=== PATIENT | male | born 1965 | race Caucasian/White ===

== ENCOUNTER 2017-05-17 17:10 | Emergency (ER) | payer MEDICARE, OTHER ==
[2017-05-17 17:35] VITALS: BMI 29.9
--- NOTE | 2017-05-17 17:36 | PDOC ---
History of Present Illness - History of Present Illness Initial Comments: 05/17/17 18:35 Mr. Sierra is a 51 year old male with a significant past medical history of diabetic neuropathy, chronic back pain, HTN, and kidney stones who presents to the emergency department with complaints of worsening of his neuropathic pain with numbness up his shoulder on the left and throughout his legs. The patient denies chest pain, shortness of breath, headache and dizziness. Denies fever, chills, nausea, vomit, diarrhea and constipation. Denies dysuria, frequency, urgency and hematuria. <Julius Guzmán - Last Filed: 05/17/17 18:55> <Mann Raines - Last Filed: 05/18/17 01:33> - General Chief Complaint: Lightheaded Stated Complaint: DIFFICULTY BREATHING Time Seen by Provider: 05/17/17 17:21 Past History - Psycho/Social/Smoking Cessation Hx Smoking History: Smoker current status UNK <Julius Guzmán - Last Filed: 05/17/17 18:55> <Mann Raines - Last Filed: 05/18/17 01:33> - Past Medical History Allergies/Adverse Reactions: Allergies Allergy/AdvReac Type Severity Reaction Status Date / Time No Known Allergies Allergy Verified 05/17/17 17:19 Home Medications: Ambulatory Orders Glipizide [Glipizide ER] 0 mg PO DAILY 05/17/17 Lovastatin 0 mg PO DAILY 05/17/17 Sitagliptin Phosphate [Januvia] 0 mg PO DAILY 05/17/17 Review of Systems - Review of Systems Comments:: 05/17/17 18:38 GENERAL/CONSTITUTIONAL: No fever or chills. No weakness. HEAD, EYES, EARS, NOSE AND THROAT: No change in vision. No ear pain or discharge. No sore throat. CARDIOVASCULAR: No chest pain or shortness of breath RESPIRATORY: No cough, wheezing, or hemoptysis. GASTROINTESTINAL: No nausea, vomiting, diarrhea or constipation. GENITOURINARY: No dysuria, frequency, or change in urination. MUSCULOSKELETAL: +Chronic back pain throughout lower back. No joint or muscle swelling or pain. SKIN: No rash NEUROLOGIC: +Increase in burning in left arm and both legs. Also reports tingling. No headache, vertigo, loss of consciousness ENDOCRINE: No increased thirst. No abnormal weight change HEMATOLOGIC/LYMPHATIC: No anemia, easy bleeding, or history of blood clots. ALLERGIC/IMMUNOLOGIC: No hives or skin allergy. <Julius Guzmán - Last Filed: 05/17/17 18:55> *Physical Exam - Physical Exam Comments: 05/17/17 18:42 GENERAL: AOx3. In no acute distress. HEAD: No signs of trauma, normocephalic, atraumatic EYES: PERRLA, EOMI ENT: Auricles normal inspection, hearing grossly normal, nares patent, oropharynx clear without exudates. Moist mucosa NECK: Normal ROM, supple, no lymphadenopathy, JVD, or masses LUNGS: +R lung coarse. 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 No distress, speaks full sentences HEART: Regular rate and rhythm, normal S1 and S2, no murmurs, rubs or gallops, peripheral pulses normal and equal bilaterally. ABDOMEN: Soft, nontender, normoactive bowel sounds. No guarding, no rebound. No masses EXTREMITIES: +1 pedal edema. Normal inspection, Normal range of motion. No clubbing or cyanosis. NEUROLOGICAL: +Neuropathic pain described / observed. Does not change with movement. Cranial nerves II through XII grossly intact. Normal speech, no focal sensorimotor deficits SKIN: Warm, Dry, normal turgor, no rashes or lesions noted. 05/17/17 19:16 <Julius Guzmán - Last Filed: 05/17/17 18:55> - Vital Signs Last Vital Signs Temp Pulse Resp BP Pulse Ox 97.8 F 80 20 123/77 99 05/17/17 22:44 05/17/17 22:44 05/17/17 22:44 05/17/17 22:44 05/17/17 22:44 <Mann Raines - Last Filed: 05/18/17 01:33> ED Treatment Course - LABORATORY CBC & Chemistry Diagram: 05/17/17 18:20 05/17/17 18:20 <Julius Guzmán - Last Filed: 05/17/17 18:55> - LABORATORY CBC & Chemistry Diagram: 05/17/17 18:20 05/17/17 18:20 - ADDITIONAL ORDERS Additional order review: Laboratory Results 05/17/17 05/17/17 23:00 18:20 Sodium 136 Potassium 4.3 Chloride 100 Carbon Dioxide 30 Anion Gap 6 L BUN 16 Creatinine 0.7 Creat Clearance w eGFR > 60 Random Glucose 144 H Calcium 8.5 Magnesium 1.9 Total Bilirubin 1.1 H AST 70 H ALT 92 H Alkaline Phosphatase 88 Creatine Kinase 389 H 529 H Creatine Kinase Index 1.6 1.7 CK-MB (CK-2) 6.425 H 9.404 H Troponin I < 0.02 Total Protein 6.9 Albumin 3.5 05/17/17 18:20 RBC 4.09 MCV 100.1 H MCHC 34.4 RDW 14.9 MPV 8.7 Neutrophils % 78.4 Lymphocytes % 12.2 Monocytes % 7.8 Eosinophils % 1.4 Basophils % 0.2 - Medications Given in the ED: ED Medications Discontinued Medications Generic Name Dose Route Start Last Admin Trade Name Freq PRN Reason Stop Dose Admin Sodium Chloride 500 mls @ 500 mls/hr 05/17/17 19:41 05/17/17 19:59 Normal Saline - IV 05/17/17 20:40 500 mls/hr ASDIR STA Administration Sodium Chloride 500 mls @ 500 mls/hr 05/17/17 21:52 05/17/17 22:19 Normal Saline - IV 05/17/17 22:51 500 mls/hr ASDIR STA Administration <Mann Raines - Last Filed: 05/18/17 01:33> Medical Decision Making - Medical Decision Making 05/17/17 18:56 Patient presents for management of many chronic problems, looking to stay in the hospital for a few days as he says he has no where else to go. Counseled by Attending on options on this matter. Serial troponins drawn with basic labs. 05/17/17 19:14 Patient broken down crying while discussing problems and says that he has been feeling very down lately. Adamantly denies SI/HI however. Dr. Raines will follow-up on patient care. <Julius Guzmán - Last Filed: 05/17/17 18:55> *DC/Admit/Observation/Transfer - Attestations Physician Attestion: 05/17/17 19:15 I, Dr. Julius Guzmán, attest that this document has been prepared under my direction and personally reviewed by me in its entirety. I further attest, that it accurately reflects all work, treatment, procedures and medical decision -making performed by me. <Julius Guzmán - Last Filed: 05/17/17 18:55> <Mann Raines - Last Filed: 05/18/17 01:33> Diagnosis at time of Disposition: Neuropathic pain, Pain of left upper extremity, Lightheadedness - Discharge Dispostion Disposition: HOME Condition at time of disposition: Stable - Referrals Referrals: STAFF,NOT ON [Primary Care Provider] - [facility] [Provider Group] - Patient Instructions Printed Discharge Instructions: Neuropathic Pain, DI for Dizziness-Nonvertigo
[2017-05-17 18:25] LABS: BASOPHIL 0.2 % (0-2.0); EOSINOPHIL 1.4 % (0-4.5); MCH 34.4 pg (25.7-33.7); MCHC 34.4 g/dl (32.0-35.9); MEAN CELL VOLUME 100.1 fl (80-96); MEAN PLT VOLUME 8.7 fl (7.5-11.1); NEUTROPHILS 78.4 % (42.8-82.8); PLATELET COUNT 132 K/MM3 (134-434); RDW 14.9 % (11.9-15.9); WHITE BLOOD COUNT 6.9 K/mm3 (4.0-10.0)
[2017-05-17 18:55] LABS: ALBUMIN 3.5 g/dl (3.4-5.0); ALK PHOS 88 U/L (45-117); ANION GAP 6 (8-16); BILIRUBIN,TOTAL 1.1 mg/dL (0.2-1.0); CALCIUM 8.5 mg/dL (8.5-10.1); CO2 30 mmol/L (21-32); CPK 529 IU/L (39-308); CREATININE 0.7 mg/dL (0.7-1.3); GLUCOSE,RANDOM 144 mg/dL (74-106); MAGNESIUM 1.9 mg/dL (1.8-2.4); SGOT/AST 70 U/L (15-37); SGPT/ALT 92 U/L (12-78); TOT PROT 6.9 g/dl (6.4-8.2); TROPONIN I < 0.02 ng/ml (0.00-0.05)
[2017-05-17] MEDS ORDERED: SODIUM CHLORIDE 500 ML IV STA ×2 (19:41→21:52)
--- NOTE | 2017-05-18 01:47 | PDOC ---
Attending Attestation - Resident Resident Name: Julius Guzmán - ED Attending Attestation I have performed the following: I have examined & evaluated the patient, The case was reviewed & discussed with the resident, I agree w/resident's findings & plan, Exceptions are as noted - HPI HPI: 05/18/17 01:37 51-year-old male with diabetes, cervical radiculopathy, hypertension, alcohol abuse, presents to the ER with multiple complains including weakness, dizziness , lightheadedness, left arm paresthesias of increased in severity over the past 6 weeks intermittent syncope and malaise. Patient was seen and evaluated at [facility] for same complaints 24 hours previously. Patient's evaluation included a CT of head which was noted to be normal. Patient reports significant familial stressors over the past several months. Patient denies suicidal/homicidal ideations. Patient reports history of depression. - Physicial Exam PE: 05/18/17 01:39 Patient is awake and alert, resting comfortably. Cranial nerves II through XII are grossly intact. Motor is 5 of 54; there is no pronation drift; gait is stable. Lung evaluation reveals intermittent rhonchi bilaterally; RRR; serial abdominal exams reveal no focal deficits. There is no rash. 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 In the ER, patient is awake and alert, without focal neurological deficits. EKG reveals no evidence of acute ischemia. Chest x-ray reveals no evidence of cardiomegaly/pneumothorax or effusion. CBC is unremarkable. 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 Initial CPK was noted to be elevated. Patient has received IV fluids and repeat CPK was noted to be decreased. I do not suspect rhabdomyolysis at this time. No acute issues are present at this time. Patient will be discharged with medical clinic follow-up as needed for evaluation of chronic complaints.
[2017-05-18 01:49] VITALS: BP 123/74; PULSE 72; TEMP 97
--- NOTE | 2017-05-19 13:44 | EKG ---
Test Reason : Blood Pressure : / mmHG Vent. Rate : 081 BPM Atrial Rate : 081 BPM P-R Int : 130 ms QRS Dur : 106 ms QT Int : 406 ms P-R-T Axes : 032 -61 057 degrees QTc Int : 471 ms NORMAL SINUS RHYTHM INCOMPLETE RIGHT BUNDLE BRANCH BLOCK LEFT ANTERIOR FASCICULAR BLOCK ANTEROLATERAL INFARCT , AGE UNDETERMINED ABNORMAL ECG NO PREVIOUS ECGS AVAILABLE Confirmed by ZAIN NIETO MD ([id number]) on 05/19/2017 1:44:08 PM Referred By: Confirmed By:ZAIN NIETO MD
== END 2017-05-18 01:49 | disposition home or self-care (01) ==
LOC: JER 17:10
PROC: 3E0337Z Introduction of Electrolytic and Water Balance Substance into Peripheral Vein, Percutaneous Approach (ICD-10-PCS; principal; 2017-05-17)
DX: M79.2 Neuralgia and neuritis, unspecified (principal); M79.602 Pain in left arm; R42 Dizziness and giddiness; E11.40 Type 2 diabetes mellitus with diabetic neuropathy, unspecified; M54.5 Low back pain; G89.29 Other chronic pain; I10 Essential (primary) hypertension; Z59.0 Homelessness
CPT/HCPCS: 36415; 71020-TC; 80053; 82553; 83735; 84484; 85025; 93005; 93010; 96360; 96361; 99285-25

== ENCOUNTER 2017-05-18 02:49 | Inpatient (IN) | payer MEDICARE, OTHER ==
--- NOTE | 2017-05-18 03:00 | HP ---
CIWA Score - CIWA Score Nausea/Vomitin Muscle Tremors: 3 Anxiety: 3 Agitation: 2 Paroxysmal Sweats: 2 Orientation: 0-Oriented Tacttile Disturbances: 2-Mild Itch/Numbness/Burn Auditory Disturbances: 2-Mild Harshness/Frighten Visual Disturbances: 2-Mild Sensitivity Headache: 2-Mild CIWA-Ar Total Score: 20 Admission ROS BHS - HPI Chief Complaint: DEPENDENT ON ETOH ONLY THE PT. WAS SENT FROM [facility] ER FOR ADMISSION TO THE DETOX UNIT. Allergies/Adverse Reactions: Allergies Allergy/AdvReac Type Severity Reaction Status Date / Time No Known Allergies Allergy Verified 05/17/17 17:19 History of Present Illness: THE PT. WAS SENT FROM THE ER FOR ADMISSION TO THE DETOX UNIT AND HE CAME FOR H AND PE PLEASE NOTE: HE CLAIMS THAT HE FELL YESTERDAY AND WAS TAKEN TO THE ER AND THE CT SCAN OF THE HEAD WAS NL. Exam Limitations: No Limitations - Ebola screening Have you traveled outside of the country in the last 21 days: No Have you had contact with anyone from an Ebola affected area: No Have you been sick,other than usual withdrawal symptoms: No Do you have a fever: No - Review of Systems Constitutional: See HPI, Malaise, Weakness EENT: reports: See HPI Respiratory: reports: See HPI Cardiac: reports: See HPI GI: reports: See HPI, Nausea, Abdominal cramping : reports: See HPI, Frequency Musculoskeletal: reports: See HPI, Back Pain, Muscle Pain, Muscle Weakness Integumentary: reports: See HPI, Sweating Neuro: reports: See HPI, Headache, Tremors, Weakness Endocrine: reports: See HPI, Increased Thirst, Increased Urine, Unexplained Weight Gain Hematology: reports: See HPI Psychiatric: reports: Judgement Intact, Orientated x3, Anxious, Depressed Patient History - Patient Medical History Hx Hypertension: Yes Hx Hypercholesterolemia: Yes Hx Diabetes: Yes (TYPE II) Hx Human Immunodeficiency Virus (HIV): No Hx Hepatitis C: No Hx Depression: Yes (AND ANXIETY) Other Medical History: CH. LBP - Patient Surgical History Past Surgical History: Yes Hx Genitourinary Surgery: Yes (FOR RENAL STONE IN 2009) - Smoking Cessation Smoking history: Current every day smoker Aproximately how many cigarettes per day: 1 Hx Chewing Tobacco Use: No Initiated information on smoking cessation: Yes 'Breaking Loose' booklet given: 05/18/17 - Substance & Tx. History Hx Alcohol Use: Yes Hx Substance Use: No Substance Use Type: Alcohol Hx Substance Use Treatment: Yes - Substances Abused Alcohol Route: Oral Frequency: Daily Amount used: BEER 1X6 PK/LIQUOR 1/2 P/D Age of first use: 51 Date of Last Use: 05/17/17 Family Disease History - Family Disease History Family Disease History: Diabetes: Father (), Sister Admission Physical Exam [facility] - Physical General Appearance: Yes: No Apparent Distress, Nourished, Appropriately Dressed , Tremorous, Sweating, Anxious HEENTM: Yes: Hearing grossly Normal, Normocephalic, Normal Voice, TARAN, Pharynx Normal Respiratory: Yes: Chest Non-Tender, Lungs Clear, Normal Breath Sounds, No Respiratory Distress, No Accessory Muscle Use Neck: Yes: No masses,lesions,Nodules, Supple, Trachea in good position Breast: Yes: Breast Exam Deferred, Axillae without masses Cardiology: Yes: Regular Rhythm, Regular Rate, S1, S2 Abdominal: Yes: Normal Bowel Sounds, Non Tender, Flat, Soft Back: Yes: Normal Inspection, Decreased Range of Motion Musculoskeletal: Yes: Gait Steady, Back pain, Muscle Pain, Muscle weakness Extremities: Yes: Normal Capillary Refill, Normal Range of Motion, Non-Tender, Tremors, Pedal Edema Neurological: Yes: 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, Fully Oriented, Alert, Motor Strength 5/5, Normal Response, Depressed Affect Integumentary: Yes: Warm, Moist Lymphatic: Yes: Within Normal Limits - Diagnostic (1) EtOH dependence Current Visit: Yes Status: Chronic Qualifiers: Substance use status: uncomplicated Qualified Code(s): F10.20 - Alcohol dependence, uncomplicated (2) Chronic bilateral low back pain Current Visit: Yes Status: Chronic Qualifiers: Sciatica presence: with sciatica Sciatica laterality: sciatica of left side Qualified Code(s): M54.42 - Lumbago with sciatica, left side; G89.29 - Other chronic pain (3) Diabetes 1.5, managed as type 2 Current Visit: Yes Status: Chronic (4) Anxiety and depression Current Visit: Yes Status: Chronic (5) HTN (hypertension) Current Visit: Yes Status: Chronic Qualifiers: Hypertension type: essential hypertension Qualified Code(s): I10 - Essential (primary) hypertension (6) Hypercholesteremia Current Visit: Yes Status: Chronic Cleared for Admission BHS - Detox or Rehab [facility] Level of Care: Medically Managed Detox Regimen/Protocol: Librium BHS Breath Alcohol Content Breath Alcohol Content: 0 Vital Signs - Vital Signs Vital Signs Refused: No Temperature: 98.1 F Temperature Source: Oral Pulse Rate: 79 Respiratory Rate: 16 Blood Pressure: 128/82 BP Location: Left Arm Blood Pressure Position: Sitting - Height Height: 5 ft 9 in - Weight Weight: 200 lb Weight Measurement Method: Estimated by Patient Body Mass Index (BMI): 29.5 Urine Drug Screen - Test Device Lot Number: [id number] Expiration Date: 01/10/19 - Control Is Test Valid: Yes - Results Drug Screen Negative: No Urine Drug Screen Results: OSVALDO-Cocaine
[2017-05-18 03:14] VITALS: BMI 29.5
[2017-05-18] MEDS ORDERED: MAG HYDROX/AL HYDROX/SIMETH 30 ML UNIT-DOSE CUP PO PRN (03:14)
[2017-05-18] MEDS ORDERED: hydrOXYzine PAMOATE 25 MG CAPSULE (FP) PO PRN (03:14)
[2017-05-18] MEDS ORDERED: chlordiazePOXIDE HCL 25 MG CAPSULE PO PRN (03:14)
[2017-05-18] MEDS ORDERED: NICOTINE POLACRILEX 2 MG GUM BC PRN (03:14)
[2017-05-18] MEDS ORDERED: chlordiazePOXIDE HCL 25 MG CAPSULE PO ONE (03:14)
[2017-05-18] MEDS ORDERED: diphenhydrAMINE HCL 50 MG CAPSULE PO PRN (03:14)
[2017-05-18] MEDS ORDERED: ACETAMINOPHEN 325 MG TABLET (FP) PO PRN (03:14)
[2017-05-18] MEDS ORDERED: MENTHOL/PHENOL 1 EACH UD MM PRN (03:14)
[2017-05-18] MEDS ORDERED: LOPERAMIDE HCL 2 MG CAPSULE PO PRN (03:14)
[2017-05-18] MEDS ORDERED: guaiFENesin/D-METHORPHAN HB 10 ML UNIT-DOSE CUPS PO PRN (03:14)
[2017-05-18] MEDS ORDERED: MAGNESIUM CITRATE 300 ML BOTTLE PO PRN (03:14)
[2017-05-18] MEDS ORDERED: MAGNESIUM HYDROX 2400MG/30ML ORAL SUSPENSION 30 ML CUP PO PRN (03:14)
[2017-05-18] MEDS ORDERED: P-EPHED 60MG/TRIPROLIDI 2.5MG TABLET PO PRN (03:14)
[2017-05-18] MEDS: IBUPROFEN 400 MG TABLET (FP) PO PRN (04:35)
[2017-05-18] MEDS: chlordiazePOXIDE HCL 25 MG CAPSULE PO SCH ×4 (05:44→22:11)
[2017-05-18] MEDS: glipiZIDE 5 MG TABLET (FP) PO SCH (08:30)
[2017-05-18] MEDS: sitaGLIPtin PHOSPHATE 50 MG TABLET PO SCH (08:30)
[2017-05-18] MEDS: PRENATAL VITAMINS W/ FOLIC ACID TABLET (FP) PO SCH (10:05)
[2017-05-18 19:26] LABS: URINE APPEARANCE CLEAR; URINE BILIRUBIN NEGATIVE (NEGATIVE); URINE BLOOD NEGATIVE (NEGATIVE); URINE COLOR YELLOW; URINE GLUCOSE (UA) 1+ (NEGATIVE); URINE KETONE NEGATIVE (NEGATIVE); URINE LEUK ESTERASE NEGATIVE (NEGATIVE); URINE NITRITE NEGATIVE (NEGATIVE); URINE PROTEIN NEGATIVE (NEGATIVE); URINE UROBILINOGEN NEGATIVE mg/dL (0.2-1.0)
[2017-05-18] MEDS: THIAMINE HCL 100 MG TABLET (FP) PO SCH (22:11)
[2017-05-19] MEDS: chlordiazePOXIDE HCL 25 MG CAPSULE PO SCH ×4 (05:31→22:35)
[2017-05-19] MEDS: sitaGLIPtin PHOSPHATE 50 MG TABLET PO SCH (07:31)
[2017-05-19] MEDS: glipiZIDE 5 MG TABLET (FP) PO SCH (07:32)
--- NOTE | 2017-05-19 10:11 | PN ---
S CIWA - CIWA Score Nausea/Vomitin-No Nausea/No Vomiting Muscle Tremors: 4-Moderate,w/Arms Extend Anxiety: 3 Agitation: 4-Moderately Restless Paroxysmal Sweats: 3 Orientation: 0-Oriented Tacttile Disturbances: 0-None Auditory Disturbances: 0-None Visual Disturbances: 0-None Headache: 1-Very Mild CIWA-Ar Total Score: 15 BHS Progress Note (SOAP) Subjective: sweats shakes interrupted sleep agitation anxiety Objective: 05/19/17 10:09 Vital Signs Temperature 98.6 F 05/19/17 09:57 Pulse Rate 87 05/19/17 09:57 Respiratory Rate 18 05/19/17 09:57 Blood Pressure 127/62 05/19/17 09:57 O2 Sat by Pulse Oximetry (%) Laboratory Tests 05/18/17 05/18/17 05/19/17 15:00 16:53 07:21 POC Glucometer 148 215 Urine Color Yellow Urine Appearance Clear Urine pH 5.0 Ur Specific [place] 1.025 Urine Protein Negative Urine Glucose (UA) 1+ H Urine Ketones Negative Urine Blood Negative Urine Nitrite Negative Urine Bilirubin Negative Urine Urobilinogen Negative Ur Leukocyte Esterase Negative labs pending awake/alert ambulating no acute distress Assessment: 05/19/17 10:10 withdrawal sx Plan: continue detox increase fluids labs pending
[2017-05-19] MEDS: PRENATAL VITAMINS W/ FOLIC ACID TABLET (FP) PO SCH (10:21)
--- NOTE | 2017-05-19 12:10 | CONSULT ---
[facility] Psychiatric Consult - Data Date of interview: 05/19/17 Admission source: [facility] Identifying data: This is 51 years old male with no psyuchiatric hospitalization history intoxicated with: Alcohol, Cocaine Substance Abuse History: - Smoking Cessation. Smoking history: Current every day smoker. Aproximately how many cigarettes per day: 1. Hx Chewing Tobacco Use: No. Initiated information on smoking cessation: Yes. 'Breaking Loose' booklet given: 05/18/17. - Substance & Tx. History. Hx Alcohol Use: Yes. Hx Substance Use: No. Substance Use Type: Alcohol. Hx Substance Use Treatment: Yes. - Substances Abused. Alcohol. Route: Oral. Frequency: Daily. Amount used: BEER 1X6 PK/LIQUOR 1/2 P/D. Age of first use: 51. Date of Last Use: 05/17/17 Medical History: LBP, DM-2, Hypergholesterolemia, Neuropathy Psychiatric History: Patient reprots hisatory of anxiety and de-pressionl reprots no medications takling prior rhonda admission Physical/Sexual Abuse/Trauma History: Denies Additional Comment: Observation. Detox Unit Care Protocol Mental Status Exam - Mental Status Exam Alert and Oriented to: Person Cognitive Function: Fair Patient Appearance: Unkempt Mood: Sad Affect: Flat Patient Behavior: Sedated Speech Pattern: Slurred Voice Loudness: Mildly Loud Thought Process: Circumstantial Thought Disorder: Being Controlled Hallucinations: Denies Suicidal Ideation: Denies Homicidal Ideation: Denies Sleep: Difficulty falling asleep Appetite: Fair Muscle strength/Tone: Mild Hypotonicity Gait/Station: Shuffling Additional Comments: Observation. Detox Unit Care Protocol Psychiatric Findings - Problem List ([place] 1, 2,3) (1) Anxiety and depression Current Visit: Yes Status: Chronic (2) Chronic bilateral low back pain Current Visit: Yes Status: Chronic Qualifiers: Sciatica presence: with sciatica Sciatica laterality: sciatica of left side Qualified Code(s): M54.42 - Lumbago with sciatica, left side; G89.29 - Other chronic pain (3) EtOH dependence Current Visit: Yes Status: Chronic Qualifiers: Substance use status: uncomplicated Qualified Code(s): F10.20 - Alcohol dependence, uncomplicated (4) Cocaine dependence Current Visit: Yes Status: Acute (5) Drug-induced mood disorder Current Visit: Yes Status: Acute - Initial Treatment Plan Initial Treatment Plan: Observation. Detox Unit Care Protocol
[2017-05-19] MEDS: THIAMINE HCL 100 MG TABLET (FP) PO SCH (22:35)
[2017-05-20] MEDS: glipiZIDE 5 MG TABLET (FP) PO SCH (06:10)
[2017-05-20] MEDS: sitaGLIPtin PHOSPHATE 50 MG TABLET PO SCH (06:10)
[2017-05-20] MEDS: chlordiazePOXIDE 5 MG CAPSULE PO SCH ×4 (06:10→22:02)
--- NOTE | 2017-05-20 09:52 | PN ---
S CIWA - CIWA Score Nausea/Vomitin-No Nausea/No Vomiting Muscle Tremors: 3 Anxiety: 4-Mod. Anxious/Guarded Agitation: 3 Paroxysmal Sweats: 3 Orientation: 0-Oriented Tacttile Disturbances: 0-None Auditory Disturbances: 0-None Visual Disturbances: 0-None Headache: 0-None Present CIWA-Ar Total Score: 13 BHS Progress Note (SOAP) Subjective: feeling better little sweats anxious Objective: 05/20/17 09:51 Vital Signs Temperature 97.9 F 05/20/17 06:00 Pulse Rate 76 05/20/17 06:00 Respiratory Rate 18 05/20/17 06:00 Blood Pressure 122/72 05/20/17 06:00 O2 Sat by Pulse Oximetry (%) Laboratory Tests 05/18/17 05/18/17 05/18/17 06:39 15:00 16:53 POC Glucometer 184 148 Urine Color Yellow Urine Appearance Clear Urine pH 5.0 Ur Specific [place] 1.025 Urine Protein Negative Urine Glucose (UA) 1+ H Urine Ketones Negative Urine Blood Negative Urine Nitrite Negative Urine Bilirubin Negative Urine Urobilinogen Negative Ur Leukocyte Esterase Negative RPR Titer 05/19/17 05/19/17 05/19/17 07:00 07:21 16:31 POC Glucometer 215 256 Urine Color Urine Appearance Urine pH Ur Specific [place] Urine Protein Urine Glucose (UA) Urine Ketones Urine Blood Urine Nitrite Urine Bilirubin Urine Urobilinogen Ur Leukocyte Esterase RPR Titer Nonreactive 05/20/17 06:09 POC Glucometer 202 Urine Color Urine Appearance Urine pH Ur Specific [place] Urine Protein Urine Glucose (UA) Urine Ketones Urine Blood Urine Nitrite Urine Bilirubin Urine Urobilinogen Ur Leukocyte Esterase RPR Titer all labs done at [facility] ED labs reviewed elevated AST/ALT; tylenol d/c awake/alert ambulating no acute distress Assessment: 05/20/17 10:10 withdrawal sx Plan: continue detox increase fluids
[2017-05-20] MEDS: PRENATAL VITAMINS W/ FOLIC ACID TABLET (FP) PO SCH (10:06)
[2017-05-20] MEDS ORDERED: PNEUMOC 13-VAL CONJ-DIP CRM/PF 0.5 ML DISP.SYRIN IM ONE (12:00)
[2017-05-20] MEDS ORDERED: PNEUMOCOCCAL 23 VACCINE 0.5 ML VIAL IM ONE (12:00)
[2017-05-20] MEDS: THIAMINE HCL 100 MG TABLET (FP) PO SCH (22:02)
[2017-05-21] MEDS ORDERED: chlordiazePOXIDE HCL 10 MG CAPSULE PO SCH (05:00)
[2017-05-21] MEDS: IBUPROFEN 400 MG TABLET (FP) PO PRN (05:40)
[2017-05-21] MEDS: sitaGLIPtin PHOSPHATE 50 MG TABLET PO SCH (06:34)
[2017-05-21] MEDS: glipiZIDE 5 MG TABLET (FP) PO SCH (06:34)
--- NOTE | 2017-05-21 09:14 | PN ---
BHS Progress Note (SOAP) Subjective: feeling great I am ready to go home Objective: 05/21/17 09:13 Vital Signs Temperature 97.9 F 05/21/17 06:25 Pulse Rate 75 05/21/17 06:25 Respiratory Rate 18 05/21/17 06:25 Blood Pressure 133/83 05/21/17 06:25 O2 Sat by Pulse Oximetry (%) [id number] ambulating no acute distress Assessment: 05/21/17 09:13 no withdrawal noted Plan: d/c home and follow up with aftercare plan
--- NOTE | 2017-05-21 09:16 | DS ---
[facility] Detox Discharge Summary Admission Date: 05/18/17 Discharge Date: 05/21/17 - History Present History: Alcohol Dependence, Cocaine Dependence - Physical Exam Results Vital Signs: Vital Signs Temperature 97.9 F 05/21/17 06:25 Pulse Rate 75 05/21/17 06:25 Respiratory Rate 18 05/21/17 06:25 Blood Pressure 133/83 05/21/17 06:25 O2 Sat by Pulse Oximetry (%) - Treatment Hospital Course: Detox Protocol Followed, Detoxed Safely, Responded well, Discharged Condition Good, Rehab Referral Accepted - Medication Discharge Medications: Ambulatory Orders Glipizide [Glipizide ER] 5 mg PO DAILY 05/17/17 Lovastatin 0 mg PO DAILY 05/17/17 Sitagliptin Phosphate [Januvia] 50 mg PO DAILY 05/17/17 - Diagnosis (1) Cocaine dependence Current Visit: Yes Status: Chronic Qualifiers: Substance use status: uncomplicated Qualified Code(s): F14.20 - Cocaine dependence, uncomplicated (2) Drug-induced mood disorder Current Visit: Yes Status: Acute (3) Anxiety and depression Current Visit: Yes Status: Chronic (4) Chronic bilateral low back pain Current Visit: Yes Status: Chronic Qualifiers: Sciatica presence: with sciatica Sciatica laterality: sciatica of left side Qualified Code(s): M54.42 - Lumbago with sciatica, left side; G89.29 - Other chronic pain (5) Diabetes 1.5, managed as type 2 Current Visit: Yes Status: Chronic (6) EtOH dependence Current Visit: Yes Status: Chronic Qualifiers: Substance use status: uncomplicated Qualified Code(s): F10.20 - Alcohol dependence, uncomplicated (7) HTN (hypertension) Current Visit: Yes Status: Chronic Qualifiers: Hypertension type: essential hypertension Qualified Code(s): I10 - Essential (primary) hypertension (8) Hypercholesteremia Current Visit: Yes Status: Chronic (9) Arm pain, left Current Visit: No Status: Resolved (10) Lightheaded Current Visit: No Status: Acute (11) Neuropathic pain Current Visit: No Status: Acute - AMA Did Patient Leave Against Medical Advice: No (outpatient (positive direction))
[2017-05-21 10:00] VITALS: BP 116/69; PULSE 88; TEMP 98.1
--- NOTE | 2017-05-21 14:53 | EKG ---
Test Reason : Blood Pressure : / mmHG Vent. Rate : 076 BPM Atrial Rate : 076 BPM P-R Int : 160 ms QRS Dur : 112 ms QT Int : 388 ms P-R-T Axes : 065 -50 137 degrees QTc Int : 436 ms NORMAL SINUS RHYTHM INCOMPLETE RIGHT BUNDLE BRANCH BLOCK LEFT ANTERIOR FASCICULAR BLOCK ANTEROSEPTAL INFARCT (CITED ON OR BEFORE 17-MAY-2017) ABNORMAL ECG WHEN COMPARED WITH ECG OF 18-MAY-2017 03:00, NO SIGNIFICANT CHANGE WAS FOUND Confirmed by EDY DUNN MD ([id number]) on 05/21/2017 2:52:45 PM Referred By: Confirmed By:EDY DUNN MD
== END 2017-05-21 09:54 | disposition home or self-care (01) | DRG 897 ==
LOC: ASASADMIT 02:49 → Y6N 03:04
PROVIDERS: ADMIT Internal Medicine; ATTEND Internal Medicine
PROC: HZ2ZZZZ Detoxification Services for Substance Abuse Treatment (ICD-10-PCS; principal; 2017-05-18)
DX: F10.230 Alcohol dependence with withdrawal, uncomplicated (principal); F14.20 Cocaine dependence, uncomplicated; F19.24 Other psychoactive substance dependence with psychoactive substance-induced mood disorder; F41.8 Other specified anxiety disorders; M54.42 Lumbago with sciatica, left side; G89.29 Other chronic pain; E11.9 Type 2 diabetes mellitus without complications; I10 Essential (primary) hypertension; E78.00 Pure hypercholesterolemia, unspecified; G62.9 Polyneuropathy, unspecified; R42 Dizziness and giddiness; M79.602 Pain in left arm; R74.0 Nonspecific elevation of levels of transaminase and lactic acid dehydrogenase [LDH]; Z87.442 Personal history of urinary calculi; Z59.0 Homelessness
CPT/HCPCS: 36415; 81003; 86593; 90732; 93005; 93010; G0009

== ENCOUNTER 2019-03-25 16:37 | Inpatient (IN) | payer MEDICARE, OTHER ==
--- NOTE | 2019-03-25 16:51 | PDOC ---
Rapid Medical Evaluation Time Seen by Provider: 03/25/19 16:47 Medical Evaluation: Allergies Allergy/AdvReac Type Severity Reaction Status Date / Time No Known Allergies Allergy Verified 05/17/17 17:19 03/25/19 16:47 I have performed a brief in-person evaluation of this patient. The patient presents with a chief complaint of: sudden onset of intermittent midsternal Chest pain today, does not radiate anywhere. (+)stent. No SOB. Pertinent physical exam findings: Pt in NAD I have ordered the following: EKG, CXR, CBC, CMP, cardiac enzymes, mag, phos The patient will proceed to the ED for further evaluation. 03/25/19 16:49 Discharge Disposition - Diagnosis Chest pain Qualifiers: Chest pain type: other chest pain Qualified Code(s): R07.89 - Other chest pain ; R07.8 - Other chest pain - Referrals - Patient Instructions - Post Discharge Activity
--- NOTE | 2019-03-25 17:48 | PDOC ---
History of Present Illness - General Chief Complaint: Chest Pain Stated Complaint: CHEST PAIN Time Seen by Provider: 03/25/19 16:47 - History of Present Illness Initial Comments: Rafita Sierra is a 53yo man with a PMH of CAD s/p NC s/p pRCA stent, HTN, HLD who presents with an unusual sensation in his left chest today. He is unable to describe the sensation exactly; he says it's possible that it feels like palpitations, but he is not sure as he has never experienced it before. He says it feels like someone tapping their fingers on his chest, but the sensation is deep inside his chest. The feeling first occurred when he went for a walk this morning. He did not have any associated SOB, pain, lightheadedness, diaphoresis , or nausea. He decided to go back home and lay down. He took a short nap, and the pain had resolved when he woke. He believes the pain lasted about 30-60 minutes. This afternoon, he had something to eat around 4:30 and the odd sensation started up again. Because of his heart history, he felt that he should be evaluated. Past History - Past Medical History Allergies/Adverse Reactions: Allergies Allergy/AdvReac Type Severity Reaction Status Date / Time No Known Allergies Allergy Verified 03/25/19 16:47 Home Medications: Ambulatory Orders Sitagliptin Phosphate [Januvia] 25 mg PO BID #60 tab 05/21/17 Aspirin [ASA -] 1 tab PO DAILY 08/27/18 Clopidogrel Bisulfate [Plavix] 75 mg PO DAILY 08/27/18 Atorvastatin Ca [Lipitor] 20 mg PO HS 03/25/19 Lisinopril [Zestril] 25 mg PO DAILY 03/25/19 Asthma: No Cardiac Disorders: No (cardiac stent placed) COPD: No Diabetes: Yes GI Disorders: No Disorders: Yes (kidney stones lithotripsy) HTN: Yes Hypercholesterolemia: Yes Kidney Stones: Yes Seizures: No - Surgical History Abdominal Surgery: No Appendectomy: No Cardiac Surgery: Yes (stent taped) Cholecystectomy: No Lung Surgery: No Neurologic Surgery: No Orthopedic Surgery: No - Reproductive History Testicular Surgery: No - Immunization History Immunization Up to Date: Yes - Suicide/Smoking/Psychosocial Hx Smoking History: Never smoked Have you smoked in the past 12 months: No Number of Cigarettes Smoked Daily: 1 If you are a former smoker, when did you quit?: quit years ago Information on smoking cessation initiated: No 'Breaking Loose' booklet given: 05/18/17 Hx Alcohol Use: No Drug/Substance Use Hx: No Substance Use Type: None Hx Substance Use Treatment: No Review of Systems - Review of Systems Comments:: General: No fevers, no chills, no weight or appetite change, no malaise HEENT: No changes in vision, no changes in hearing, no congestion, no sore throat CV: No chest pain, + possible palpitations, no LE edema Pulm: No SOB, no cough, no wheezing GI: No nausea or vomiting, no change in bowel habits, no melena : No frequency, no urgency, no dysuria Musc: No back pain, no joint swelling, no recent injury Skin: No rash, no lesions, no erythema Endo: No excessive thirst, no heat/cold intolerance Heme: No unusual bruising or bleeding, no swollen glands Neuro: No syncope, no numbness/tingling, no focal weakness Vasc: No claudication Psych: No recent change in mood, no SI or HI *Physical Exam - Vital Signs Last Vital Signs Temp Pulse Resp BP Pulse Ox 98.2 F 91 H 17 155/92 96 03/25/19 16:47 03/25/19 16:47 03/25/19 16:47 03/25/19 16:47 03/25/19 16:47 - Physical Exam Comments: General: Comfortable, no acute distress HEENT: Atraumatic, PERRL, EOMI, MMM, voice normal, normal neck ROM Cards: RRR, no murmur appreciated, no chest wall tenderness Pulm: Comfortable on room air, clear to auscultation bilaterally Abd: Soft, nontender, nondistended Ext: Atraumatic. No LE edema. ROM intact Vasc: Extremities WWP Skin: Normal color, no rashes or lesions Neuro: A&Ox3, CN grossly intact, normal speech, motor/sensory grossly intact and symmetric Psych: Mood appropriate to situation ED Treatment Course - LABORATORY CBC & Chemistry Diagram: 03/25/19 17:35 03/25/19 17:35 Medical Decision Making - Medical Decision Making 03/25/19 17:42 Rafita Sierra is a 53yo man with a PMH of CAD s/p NC s/p pRCA stent, HTN, HLD who presents with an unusual sensation in his left chest today that feels like fingers tapping on his chest. He experienced the sensation twice, and he denies any associated symptoms including SOB, pain, - Low suspicion for ACS, could be intermittent arrhythmia. No symptoms suggesting infection - Cardiac workup sent in RME - CXR completed; no focal pathology - EKG completed in triage; needs to be located 03/25/19 18:23 - EKG reviewed. HR 91, regular, normal intervals, left axis, incomplete RBBB, L anterior fascicular block - Ordering ASA for possible ACS, especially as he had an atypical presentation during his prior NC - reports that he "fell out" but no chest pain or other symptoms. 03/25/19 18:50 - Labs completed. Notable for elevated glucose in the 200's. Trop 0.03. Otherwise unremarkable - Updated Mr Sierra. Advised obs admission for repeat EKG and trop overnight. He agrees with this plan - Sees Dr Quinones as an outpatient. Consult placed - Microblog sent for obs admission 03/25/19 19:05 - Signed out to Dr Daniel for the remainder of ED care - Spoke to Dr Cuevas. Will evaluate for admission. Discussed with Dr Beverly. Rissa Gold PGY1 *DC/Admit/Observation/Transfer Diagnosis at time of Disposition: Chest pain Qualifiers: Chest pain type: other chest pain Qualified Code(s): R07.89 - Other chest pain - Discharge Dispostion Decision to Admit order: Yes - Referrals Referrals: ON STAFF,NOT [Primary Care Provider] - - Patient Instructions - Post Discharge Activity
[2019-03-25 18:13] LABS: BASO % 0.5 % (0-2.0); EOS % 3.1 % (0-4.5); HEMATOCRIT 42.7 % (35.4-49); HEMOGLOBIN 14.3 GM/dL (11.7-16.9); LYMPH % 25.5 % (8-40); MCH 33.3 pg (25.7-33.7); MCHC 33.6 g/dl (32.0-35.9); MEAN CELL VOLUME 99.2 fl (80-96); MEAN PLT VOLUME 9.4 fl (7.5-11.1); MONO % 10.5 % (3.8-10.2); NEUT % 60.4 % (42.8-82.8); PLATELET COUNT 110 K/MM3 (134-434); RDW 16.9 % (11.9-15.9); WHITE BLOOD COUNT 4.9 K/mm3 (4.0-10.0)
[2019-03-25] MEDS ORDERED: ASPIRIN 81 MG CHEWABLE TABLETS PO ONE (18:26)
[2019-03-25] MEDS ORDERED: ASPIRIN 81 MG CHEWABLE TABLETS ONE (18:33)
[2019-03-25 18:39] LABS: INR 1.03 (0.83-1.09); PROTHROMBIN TIME (PATIENT) 12.1 SEC (9.7-13.0)
[2019-03-25 18:41] LABS: ALBUMIN 3.4 g/dl (3.4-5.0); BILIRUBIN,TOTAL 0.8 mg/dL (0.2-1); BLOOD UREA NITROGEN 17.8 mg/dL (7-18); CALCIUM 8.6 mg/dL (8.5-10.1); CREATININE 0.9 mg/dL (0.55-1.3); PHOSPHOROUS 3.7 mg/dL (2.5-4.9); POTASSIUM 4.1 mmol/L (3.5-5.1); TOT PROT 7.3 g/dl (6.4-8.2)
--- NOTE | 2019-03-25 19:31 | HP ---
<Kevin Cuevas - Last Filed: 03/26/19 19:33> CHIEF COMPLAINT: chest discomfort HISTORY OF PRESENT ILLNESS: Patient is a 53 yo M with a PMHx of SC, 1 drug eluding stent (06/30), HTN, HLD, DM, presented to the ED with intermittent, sub-sternal, non-radiating, chest discomfort that started at 7am when he woke up from bed. Patient denies chest pain and describes this discomfort as an "unusual,weird sensation". He says he never experienced this type of feeling before. 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 He says he had a recent echo this past year. He denies palpitations , dizziness, chest pain, nausea, vomiting, sob, edema, diaphoresis, lightheadedness, urinary changes. ER course was notable for: (1) ASA 324 (2) EKG: no acute changes- NSR, L Ant Fascicular block, L axis Recent Travel: denies PAST MEDICAL HISTORY: per HPI PAST SURGICAL HISTORY: kidney stone removal Social History: Smoking: denies Alcohol: denies Drugs: denies Family History: Allergies No Known Allergies Allergy (Verified 03/25/19 16:47) HOME MEDICATIONS: Home Medications Medication Instructions Recorded Sitagliptin Phosphate [Januvia] 25 mg PO BID #60 tab 05/21/17 Aspirin [ASA -] 1 tab PO DAILY 08/27/18 Clopidogrel Bisulfate [Plavix] 75 mg PO DAILY 08/27/18 Atorvastatin Ca [Lipitor] 20 mg PO HS 03/25/19 Lisinopril [Zestril] 25 mg PO DAILY 03/25/19 REVIEW OF SYSTEMS CONSTITUTIONAL: Absent: fever, chills, diaphoresis, generalized weakness, malaise, loss of appetite, weight change HEENT: Absent: rhinorrhea, nasal congestion, throat pain, throat swelling, difficulty swallowing, mouth swelling, ear pain, eye pain, visual changes CARDIOVASCULAR: Absent: chest pain, syncope, palpitations, irregular heart rate, lightheadedness , peripheral edema RESPIRATORY: Absent: cough, shortness of breath, dyspnea with exertion, orthopnea, wheezing, stridor, hemoptysis GASTROINTESTINAL: Absent: abdominal pain, abdominal distension, nausea, vomiting, diarrhea, constipation, melena, hematochezia GENITOURINARY: Absent: dysuria, frequency, urgency, hesitancy, hematuria, flank pain, genital pain MUSCULOSKELETAL: Absent: myalgia, arthralgia, joint swelling, back pain, neck pain NEUROLOGIC: Absent: headache, focal weakness or paresthesias, dizziness, unsteady gait, seizure, mental status changes, bladder or bowel incontinence PHYSICAL EXAMINATION Vital Signs - 24 hr 03/25/19 16:47 Temperature 98.2 F Pulse Rate 91 H Respiratory 17 Rate Blood Pressure 155/92 O2 Sat by Pulse 96 Oximetry (%) GENERAL: Awake, alert, and fully oriented, in no acute distress. HEAD: Normal with no signs of trauma. EYES: Pupils equal, round and reactive to light, extraocular movements intact, sclera anicteric, conjunctiva clear. = EARS, NOSE, THROAT: = oropharynx clear without exudates. Moist mucous membranes. NECK:supple without lymphadenopathy, JVD, or masses. LUNGS: Breath sounds equal, clear to auscultation bilaterally. No wheezes, and no crackles. HEART: Regular rate and rhythm, normal S1 and S2 without murmur, rub or gallop. ABDOMEN: Soft, nontender, not distended, normoactive bowel sounds, no guarding, no rebound, no masses. MUSCULOSKELETAL: Normal range of motion at all joints. LOWER EXTREMITIES: 2+ pulses, warm, well-perfused. No calf tenderness. No peripheral edema. NEUROLOGICAL: Cranial nerves II-XII intact. Normal speech. Laboratory Results - last 24 hr 03/25/19 03/25/19 03/25/19 17:35 17:35 17:35 WBC 4.9 RBC 4.30 Hgb 14.3 Hct 42.7 MCV 99.2 H MCH 33.3 MCHC 33.6 RDW 16.9 H Plt Count 110 L MPV 9.4 Absolute Neuts (auto) 3.0 Neutrophils % 60.4 D Lymphocytes % 25.5 D Monocytes % 10.5 H Eosinophils % 3.1 D Basophils % 0.5 Nucleated RBC % 0 PT with INR 12.10 INR 1.03 Sodium Potassium Chloride Carbon Dioxide Anion Gap BUN Creatinine Est GFR (CKD-EPI)AfAm Est GFR (CKD-EPI)NonAf Random Glucose Calcium Phosphorus Magnesium Total Bilirubin AST ALT Alkaline Phosphatase Creatine Kinase Creatine Kinase Index CK-MB (CK-2) Troponin I Total Protein Albumin Lipase Blood Type Cancelled Antibody Screen Cancelled 03/25/19 17:35 WBC RBC Hgb Hct MCV MCH MCHC RDW Plt Count MPV Absolute Neuts (auto) Neutrophils % Lymphocytes % Monocytes % Eosinophils % Basophils % Nucleated RBC % PT with INR INR Sodium 139 Potassium 4.1 Chloride 103 Carbon Dioxide 28 Anion Gap 8 BUN 17.8 Creatinine 0.9 Est GFR (CKD-EPI)AfAm 111.05 Est GFR (CKD-EPI)NonAf 95.81 Random Glucose 232 H Calcium 8.6 Phosphorus 3.7 Magnesium 2.0 Total Bilirubin 0.8 AST 33 ALT 35 Alkaline Phosphatase 115 Creatine Kinase 216 Creatine Kinase Index 1.4 CK-MB (CK-2) 3.2 Troponin I 0.03 Total Protein 7.3 Albumin 3.4 Lipase 117 Blood Type Antibody Screen ASSESSMENT/PLAN: 53 yo M with a PMHx of SC, 1 drug eluding stent (06/30), HTN, HLD, DM, presented to the ED with intermittent, sub-sternal, non-radiating, chest discomfort #Chest discomfort/Atypical Chest Pain -r/o ACS -tele monitoring -1st trop 0.03, FU repeat -ASA 324 given in ED -Give nitro SL -lipid panel -obtain echo from steam train driver -cardiology consulted by ED: Dr. Quinones -FU TSH #HTN -cont Lisinopril 25mg #HLD -cont. Atoravastatin 20mg -FU lipid panel #DM -hyperglycemic in ED, says he drank diet pepsi -hold Januvia -BGM -SSI -Hgb A1c #FEN -no iv fluids -monitor -diabetic diet #Dvt ppx -hep sq dispo: tele-obs Visit type - Emergency Visit Emergency Visit: Yes ED Registration Date: 03/25/19 Care time: The patient presented to the Emergency Department on the above date and was hospitalized for further evaluation of their emergent condition. - New Patient This patient is new to me today: Yes Date on this admission: 03/26/19 - Critical Care Critical Care patient: No <Emeterio Fregoso - Last Filed: 03/29/19 23:42> Seen and examined; agree with above except as supplemented by myself in my own documentation. Present for and verified all beltran parts of history of physical exam and independently reviewed all labs, test results, etc. Seen and examined; agree with above except as supplemented by myself in my own documentation. Present for and verified all beltran parts of history of physical exam and independently reviewed all labs, test results, etc.
--- NOTE | 2019-03-25 19:45 | PN ---
Teaching Attending Note Name of Resident: Kevin Cuevas ATTENDING PHYSICIAN STATEMENT I saw and evaluated the patient. I reviewed the resident's note and discussed the case with the resident. I agree with the resident's findings and plan as documented. SUBJECTIVE: Intermittent substernal nonradiating chest discomfort since 7AM. No current chest pain. "weird sensation." Recent echo with his CV Dr. Quinones. We do not have a cath report from his last encounter. [place] last year s/p 1 ANNEMARIE 06/2018 HTN HLD DM In the ER he was given ASA and medicine was called for admission 10 sys ROS done and negative aside from HPI PMH, PSH, FH, SH reviewed Home Medications Medication Instructions Recorded Sitagliptin Phosphate [Januvia] 25 mg PO BID #60 tab 05/21/17 Aspirin [ASA -] 1 tab PO DAILY 08/27/18 Clopidogrel Bisulfate [Plavix] 75 mg PO DAILY 08/27/18 Atorvastatin Ca [Lipitor] 20 mg PO HS 03/25/19 Lisinopril [Zestril] 25 mg PO DAILY 03/25/19 OBJECTIVE: VS, labs, imaging reviewed NAD, AAO, resting comfortably in bed NC AT EOMI PERRLA RRR s1/2 no mgr Lungs CTAB, w/ sym exp NT ND +BS CN2-12 wnl, no fnd Normal mood, appropriate affect EKG reviewed; L-AF block, q-waves, similar to prior study CXR reviewed Prior EKGs reviewed ASSESSMENT AND PLAN: Patient presents with chest pain; had recent stenting last year 1) Atypical CP in adult, r/o ACS -Given risk factors, etc. will be potentially benefitting from stres test. Need to d/w CV and review old cath, etc. -Check troponin, monitor tele, repeat EKG _Appreciate expert consult 2) HTN -Contineu home meds 3) HLD -Continue home statin 4) DM -Continue home insulin
[2019-03-25] MEDS ORDERED: NITROGLYCERIN SUBLINGUAL 1/150 0.4 MG TAB SL ONE (19:54)
--- NOTE | 2019-03-25 20:42 | PDOC ---
Documentation entered by Partha Cotto SCRIBE, acting as scribe for Constance Beverly MD. Constance Beverly MD: This documentation has been prepared by the Yadiel majano Daniel, SCRIBE, under my direction and personally reviewed by me in its entirety. I confirm that the documentation accurately reflects all work, treatment, procedures, and medical decision making performed by me. Attending Attestation - Resident Resident Name: AllaRissa - ED Attending Attestation I have performed the following: I have examined & evaluated the patient, The case was reviewed & discussed with the resident, I agree w/resident's findings & plan, Exceptions are as noted - HPI HPI: 03/25/19 18:16 The patient is a 53 year old male with a past medical history of CAD, [place] s/p stent in RCA, HTN, insulin dependent diabetes, and HLD here today for evaluation of "weird" chest sensation. The patient reports that his chest sensation started at 11:30 AM while he was walking. He states it feels like a non radiating tingling in his L chest a/w some sharp tapping in the same area. He notes that it lasted for about an hour and resolved by itself. He states that it came back around 4:30 PM when he was eating. Patient describes his chest sensation as tapping fingers inside of his chest. At the time of my evaluation, the sensation has returned. He denies hx similar sxs. Denies tobacco or drug use. Denies associated diaphoresis, SOB, headache, focal weakness/numbness, dizziness, N/V, abd pain, or LE edema. Denies fever, chills. Denies recent travel or immobility. Denies calf pain. Take baby asa and plavix daily. Allergies: NKA - Physicial Exam PE: 03/25/19 18:54 GENERAL: Awake, alert, and fully oriented, in no acute distress EYES: PERRLA, EOMI, sclera anicteric, conjunctiva clear ENT: Oropharynx clear without exudates. Moist mucosa NECK: Normal ROM, supple, no lymphadenopathy, JVD, or masses LUNGS: Breath sounds equal, clear to auscultation bilaterally. No wheezes, and no crackles HEART: Regular rate and rhythm, normal S1 and S2, no murmurs, rubs or gallops ABDOMEN: Soft, nontender, normoactive bowel sounds. No guarding, no rebound. No masses EXTREMITIES: Normal range of motion, no edema. No cords, erythema, or tenderness NEUROLOGICAL: Normal speech, cranial nerves intact, equal strength and sensation b/l SKIN: Warm, Dry, normal turgor, no rashes or lesions noted. - Medical Decision Making 03/25/19 18:56 53yo M hx MMP including CAD s/p stent presents to the ED with abnormal sensation in the L side of his chest. Vitals wnl Exam wnl EKG unchanged HS 4 Labs including initial trop neg Given history of CAD, plan for tele obs admission for [facility] Hospitalist has been paged for admission. Heart Score/ECG Review - History History: Slightly suspicious - Electrocardiogram EKG: Non specific repolarization disturbance - Age Age: 45-65 - Risk Factors Based on the list above the patient has:: >/=3 risk factors or Hx atherosclerotic disease - Troponin Troponin: </= normal limit - Score Heart Score - Total: 4 #1 03/25/19 18:57 EKG read and interpreted by me: NSR, rate 91, L axis deviation. No PURVI or TWI.
[2019-03-25] MEDS ORDERED: ATORVASTATIN CA 20 MG TABLET (FP) PO SCH (22:00)
[2019-03-25] MEDS: INSULIN SLIDING SCALE (NOVOLOG) 1 VIAL SQ SCH (22:42)
[2019-03-25 23:26] VITALS: BMI 29.7
[2019-03-26] MEDS: INSULIN SLIDING SCALE (NOVOLOG) 1 VIAL SQ SCH ×3 (06:30→22:10)
[2019-03-26] MEDS: HEPARIN NA (PORCINE) 5,000 UNITS/ML 1ML VIAL SQ SCH ×3 (06:35→22:08)
[2019-03-26 07:02] LABS: BASO % 0.5 % (0-2.0); EOS % 4.7 % (0-4.5); HEMATOCRIT 41.2 % (35.4-49); HEMOGLOBIN 14.1 GM/dL (11.7-16.9); LYMPH % 30.9 % (8-40); MCH 33.7 pg (25.7-33.7); MCHC 34.3 g/dl (32.0-35.9); MEAN CELL VOLUME 98.4 fl (80-96); MEAN PLT VOLUME 9.3 fl (7.5-11.1); MONO % 9.7 % (3.8-10.2); NEUT % 54.2 % (42.8-82.8); PLATELET COUNT 97 K/MM3 (134-434); RBC 4.19 M/mm3 (4.00-5.60); RDW 16.9 % (11.9-15.9); WHITE BLOOD COUNT 4.5 K/mm3 (4.0-10.0)
[2019-03-26 07:32] LABS: ALBUMIN 3.2 g/dl (3.4-5.0); BILIRUBIN,TOTAL 1.4 mg/dL (0.2-1); BLOOD UREA NITROGEN 19.6 mg/dL (7-18); CREATININE 0.7 mg/dL (0.55-1.3); PHOSPHOROUS 3.4 mg/dL (2.5-4.9); POTASSIUM 3.9 mmol/L (3.5-5.1); TOT PROT 6.8 g/dl (6.4-8.2)
[2019-03-26 07:36] LABS: CHOLESTEROL 166 mg/dL (50-200); HDL CHOLESTEROL 61 mg/dL (40-60); TRIGLYCERIDES 85 mg/dL (0-150)
--- NOTE | 2019-03-26 08:57 | CON.CARD ---
Consult Consult Specialty:: cardiology Reason for Consultation:: chest pain - History of Present Illness Chief Complaint: Pt still c/o chest tingling, though much milder than yesterday. History of Present Illness: Mr. Sierra is a 53 year old male with a past medical history of CAD, [place] s/p stent in RCA 06/2018, HTN, insulin dependent diabetes, and HLD, here today for evaluation of "weird" chest sensation. The patient reports that his chest sensation started at 11:30 AM while he was walking. He states it feels like a non radiating tingling in his L chest a/w some sharp tapping in the same area. He notes that it lasted for about an hour and resolved by itself. He states that it came back around 4:30 PM when he was eating. Patient describes his chest sensation as tapping fingers inside of his chest. At the time of my evaluation, the sensation has returned. He denies hx similar sxs. Denies tobacco or drug use. Denies associated diaphoresis, SOB, headache, focal weakness/numbness, dizziness, N/V, abd pain, or LE edema. Denies fever, chills. Denies recent travel or immobility. Denies calf pain. Take baby asa and plavix daily. Allergies: NKA - History Source History Provided By: Patient, Medical Record Limitations to Obtaining History: No Limitations - Past Medical History Cardio/Vascular: Yes: CAD, CHF (diastolic), HTN, IN Pulmonary: No: Asthma Renal/: No: Renal Failure - Past Surgical History Past Surgical History: Yes: Stent (coronary ) - Alcohol/Substance Use Hx Alcohol Use: No - Smoking History Smoking history: Never smoked Have you smoked in the past 12 months: No Aproximately how many cigarettes per day: 1 If you are a former smoker, when did you quit?: quit years ago Home Medications - Allergies Allergies/Adverse Reactions: Allergies Allergy/AdvReac Type Severity Reaction Status Date / Time No Known Allergies Allergy Verified 03/25/19 16:47 - Home Medications Home Medications: Ambulatory Orders Sitagliptin Phosphate [Januvia] 25 mg PO BID #60 tab 05/21/17 Aspirin [ASA -] 1 tab PO DAILY 08/27/18 Clopidogrel Bisulfate [Plavix] 75 mg PO DAILY 08/27/18 Atorvastatin Ca [Lipitor] 20 mg PO HS 03/25/19 Lisinopril [Zestril] 2.5 mg PO DAILY 03/25/19 Insulin Glargine,Hum.rec.anlog [Nohemiagljahaira Donaldsonpen U-100] 10 unit SQ HS 03/26/19 Family Disease History - Family Disease History Family Disease History: Diabetes: Father (), Sister Review of Systems - Review of Systems Constitutional: reports: No Symptoms Eyes: reports: No Symptoms HENT: reports: No Symptoms Neck: reports: No Symptoms Cardiovascular: reports: Chest Pain Respiratory: reports: SOB on Exertion Gastrointestinal: reports: No Symptoms Genitourinary: reports: No Symptoms Breasts: reports: No Symptoms Reported Musculoskeletal: reports: No Symptoms Integumentary: reports: No Symptoms Neurological: reports: No Symptoms Endocrine: reports: No Symptoms Hematology/Lymphatic: reports: No Symptoms Psychiatric: reports: No Symptoms - Risk Factors Known Risk Factors: Yes: Age, Diabetes Mellitus, Gender, Hypercholesterolemia, Hypertension, Prior IN /Emb Stroke Vital Signs: Vital Signs Temperature 98.5 F 03/26/19 01:28 Pulse Rate 72 03/26/19 05:00 Respiratory Rate 20 03/26/19 05:00 Blood Pressure 123/72 03/26/19 05:00 O2 Sat by Pulse Oximetry (%) 97 03/25/19 20:00 Abnormal Lab Results 03/27/19 03/27/19 06:33 06:33 MCV 98.2 H MCH 33.9 H RDW 16.9 H Plt Count 116 L Anion Gap 3 L Random Glucose 145 H Calcium 8.4 L Constitutional: Yes: Calm Eyes: Yes: WNL HENT: Yes: WNL Neck: Yes: WNL Respiratory: Yes: WNL Gastrointestinal: Yes: WNL Renal/: Yes: WNL Cardiovascular: Yes: WNL JVD: No Carotid Bruit: No PMI: Non-Displaced Heart Sounds: Yes: S1, S2 Murmur: Yes: Systolic Murmur, Grade 1 Musculoskeletal: Yes: WNL Extremities: Yes: WNL Edema: No Peripheral Pulses WNL: Yes Integumentary: Yes: WNL Neurological: Yes: WNL ...Motor Strength: WNL Psychiatric: Yes: WNL - Other Data Labs, Other Data: CBC, BMP 03/26/19 06:30 03/26/19 06:30 INR, PTT INR 1.03 (0.83-1.09) 03/25/19 17:35 Troponin, BNP 03/25/19 03/26/19 17:35 00:00 Troponin I 0.03 0.03 Troponin, BNP 03/25/19 03/26/19 17:35 00:00 Troponin I 0.03 0.03 Abnormal Lab Results 03/27/19 03/27/19 06:33 06:33 MCV 98.2 H MCH 33.9 H RDW 16.9 H Plt Count 116 L Anion Gap 3 L Random Glucose 145 H Calcium 8.4 L Abnormal Lab Results 03/27/19 03/27/19 06:33 06:33 MCV 98.2 H MCH 33.9 H RDW 16.9 H Plt Count 116 L Anion Gap 3 L Random Glucose 145 H Calcium 8.4 L Problem List - Problems (1) Myocardial infarct, old Assessment/Plan: s/p coronary stent 06/2018 at [facility]. Continue ASA and clopidogrel. On lisinopril and metorolol. Stess MIBI pending. Code(s): I25.2 - OLD MYOCARDIAL INFARCTION (2) Acute on chronic systolic (congestive) heart failure Code(s): I50.23 - ACUTE ON CHRONIC SYSTOLIC (CONGESTIVE) HEART FAILURE (3) Overweight Code(s): E66.3 - OVERWEIGHT (4) Diabetes Assessment/Plan: On levemir and insulin. On lisinopril (HTN; CAD; systolic CHF; renal protection with DM). Code(s): E11.9 - TYPE 2 DIABETES MELLITUS WITHOUT COMPLICATIONS (5) Chest pain Assessment/Plan: 1st time he has had chest pain (vague sternal pressure/tingling, that was off and on for hours at rest; he finalyy asked family to drive him to ER) since stdent 06/2018. TNI 0.03/ f;u serially EKG: NSR; ? old IWMI; nonspecific STT chagnes anterior. For stress MIBI. Code(s): R07.9 - CHEST PAIN, UNSPECIFIED Qualifiers: Chest pain type: other chest pain Qualified Code(s): R07.89 - Other chest pain; R07.8 - Other chest pain (6) HTN (hypertension) Code(s): I10 - ESSENTIAL (PRIMARY) HYPERTENSION Qualifiers: Hypertension type: essential hypertension Qualified Code(s): I10 - Essential (primary) hypertension (7) Hypercholesteremia Code(s): E78.00 - PURE HYPERCHOLESTEROLEMIA, UNSPECIFIED
[2019-03-26] MEDS ORDERED: LISINOPRIL PO SCH (10:00)
[2019-03-26] MEDS ORDERED: LISINOPRIL 20 MG TABLET (FP) PO SCH (10:00)
[2019-03-26] MEDS: LISINOPRIL 20 MG TABLET (FP) PO SCH (10:35)
[2019-03-26] MEDS: ASPIRIN 81 MG CHEWABLE TABLETS PO SCH (10:35)
[2019-03-26] MEDS: CLOPIDOGREL BISULFATE 75 MG TABLET (FP) PO SCH (10:35)
--- NOTE | 2019-03-26 11:05 | ECHO ---
Name: CARIDAD MILES Exam:Adult Echocardiogram Study Date: 03/26/2019 09:50 AM Age: 53 yrs Reason For Study: S/P LA HTN Height: 68 in Weight: 195 lb BSA: 2.0 m2 MMode/2D Measurements & Calculations IVSd: 0.87 cm Ao root diam: 2.7 cm LVIDd: 4.2 cm LA dimension: 3.6 cm LVIDs: 3.1 cm LVPWd: 0.89 cm EDV(Teich): 80.6 ml LVOT diam: 2.2 cm ESV(Teich): 37.8 ml Doppler Measurements & Calculations MV E max goldy: 88.8 cm/sec Ao V2 max: 112.2 cm/sec MV A max goldy: 85.9 cm/sec Ao max P.0 mmHg MV E/A: 1.0 Ao V2 mean: 84.9 cm/sec MV dec time: 0.21 sec Ao mean P.2 mmHg Ao V2 VTI: 29.0 cm ADELINE(I,D): 2.1 cm2 ADELINE(V,D): 2.1 cm2 LV V1 max P.6 mmHg MR max goldy: 159.8 cm/sec LV V1 mean P.0 mmHg MR max P.2 mmHg LV V1 max: 63.5 cm/sec LV V1 mean: 48.6 cm/sec LV V1 VTI: 15.9 cm SV(LVOT): 59.8 ml Left Ventricle Ejection Fraction = 40-45%. Severe hypokinesis of the basal and mid inferolateral wall; mid anterosep connor; apical inferior/ apical anterior reed and apex. Right Ventricle The right ventricle is grossly normal size. The right ventricular systolic function is grossly normal . Atria Normal left and right atrial size and function. Mitral Valve There is mild mitral valve thickening. There is no mitral valve stenosis. There is trace mitral regur gitation. Tricuspid Valve The tricuspid valve is normal in structure and function. There is mild tricuspid regurgitation. Aortic Valve The aortic valve opens well. No hemodynamically significant valvular aortic stenosis. No aortic regur gitation is present. Pulmonic Valve The pulmonic valve is not well seen, but is grossly normal. There is no pulmonic valvular stenosis. Great Vessels The aortic root is normal size. Pericardium/Pleura There is no pericardial effusion. Interpretation Summary Ejection Fraction = 40-45%. Severe hypokinesis of the basal and mid inferolateral wall; mid anteroseptum; apical inferior/ apical anterior reed and apex. There is mild tricuspid regurgitation. There is no pericardial effusion. MD Dubose *Jay 03/26/2019 11:04 AM
--- NOTE | 2019-03-26 11:47 | EKG ---
Test Reason : Blood Pressure : / mmHG Vent. Rate : 091 BPM Atrial Rate : 091 BPM P-R Int : 172 ms QRS Dur : 110 ms QT Int : 382 ms P-R-T Axes : 054 -72 052 degrees QTc Int : 469 ms NORMAL SINUS RHYTHM INCOMPLETE RIGHT BUNDLE BRANCH BLOCK LEFT ANTERIOR FASCICULAR BLOCK ANTEROLATERAL INFARCT (CITED ON OR BEFORE 17-MAY-2017) ABNORMAL ECG Confirmed by DOROTHY JOSE MD ([id number]) on 03/26/2019 11:47:07 AM Referred By: Confirmed By:DOROTHY JOSE MD
[2019-03-26] MEDS ORDERED: REGADENOSON 0.4 MG/5 ML PRE-FILLED SYRINGE IVPUSH ONE (14:08)
--- NOTE | 2019-03-26 15:47 | PN ---
Teaching Attending Note Name of Resident: Ronald Gee ATTENDING PHYSICIAN STATEMENT I saw and evaluated the patient. I reviewed the resident's note and discussed the case with the resident. I agree with the resident's findings and plan as documented. SUBJECTIVE: No fever or chills. no BURGER. No cp. OBJECTIVE: NAD CV: RRR Lungs: CTAB Ext: no edema or erythema ASSESSMENT AND PLAN: 53 y/o man with h/o CAD s/p [place] and ANNEMARIE 06/30 , HTN, HLP, who presented with CP at rest x 2 hours. 1_ CP, sounds like unstable angina. d/w card and stress test ordered. - cont Asa and plavix LDL 90s , will increase lipitor to 40 - Further recs pending stress test 2- Dm : resume his levemir and cont SSI 3- HTN : cont lisinopril heparin sq for DVT PX dispo : Dc home VS transfer for cath pending stress test
[2019-03-26] MEDS ORDERED: CLOPIDOGREL BISULFATE 75 MG TABLET (FP) PO ONE (16:35)
--- NOTE | 2019-03-26 17:41 | PN ---
Physical Exam: SUBJECTIVE: Patient seen and examined at bedside. Still endorsing sub-sternal chest pain, nonradiating. OBJECTIVE: Vital Signs Period Temp Pulse Resp BP Sys/Hillman Pulse Ox Last 24 Hr 98.1 F-98.5 F 68-88 16-20 117-124/69-73 97-98 GENERAL: NAD HEAD: Normal with no signs of trauma. EYES: EOMI Sclera Clear ENT: MMM NECK: Trachea midline, full range of motion, supple. LUNGS: CTAB. HEART: RRR S1S2, Nontender to palpation. ABDOMEN: Soft, NDNT. EXTREMITIES: No CCE NEUROLOGICAL: Cranial nerves II through XII grossly intact. Normal speech. PSYCH: Normal mood, normal affect. SKIN: Warm, dry, normal turgor, no rashes or lesions noted Laboratory Results - last 24 hr 03/25/19 03/25/19 03/25/19 17:35 17:35 17:35 WBC 4.9 RBC 4.30 Hgb 14.3 Hct 42.7 MCV 99.2 H MCH 33.3 MCHC 33.6 RDW 16.9 H Plt Count 110 L MPV 9.4 Absolute Neuts (auto) 3.0 Neutrophils % 60.4 D Lymphocytes % 25.5 D Monocytes % 10.5 H Eosinophils % 3.1 D Basophils % 0.5 Nucleated RBC % 0 PT with INR 12.10 INR 1.03 Sodium Potassium Chloride Carbon Dioxide Anion Gap BUN Creatinine Est GFR (CKD-EPI)AfAm Est GFR (CKD-EPI)NonAf POC Glucometer Random Glucose Hemoglobin A1c % Calcium Phosphorus Magnesium Total Bilirubin AST ALT Alkaline Phosphatase Creatine Kinase Creatine Kinase Index CK-MB (CK-2) Troponin I Total Protein Albumin Triglycerides Cholesterol Total LDL Cholesterol HDL Cholesterol Lipase TSH Blood Type Cancelled Antibody Screen Cancelled 03/25/19 03/25/19 03/26/19 17:35 21:27 00:00 WBC RBC Hgb Hct MCV MCH MCHC RDW Plt Count MPV Absolute Neuts (auto) Neutrophils % Lymphocytes % Monocytes % Eosinophils % Basophils % Nucleated RBC % PT with INR INR Sodium 139 Potassium 4.1 Chloride 103 Carbon Dioxide 28 Anion Gap 8 BUN 17.8 Creatinine 0.9 Est GFR (CKD-EPI)AfAm 111.05 Est GFR (CKD-EPI)NonAf 95.81 POC Glucometer 214 Random Glucose 232 H Hemoglobin A1c % Calcium 8.6 Phosphorus 3.7 Magnesium 2.0 Total Bilirubin 0.8 AST 33 ALT 35 Alkaline Phosphatase 115 Creatine Kinase 216 Creatine Kinase Index 1.4 CK-MB (CK-2) 3.2 Troponin I 0.03 0.03 Total Protein 7.3 Albumin 3.4 Triglycerides Cholesterol Total LDL Cholesterol HDL Cholesterol Lipase 117 TSH Blood Type Antibody Screen 03/26/19 03/26/19 03/26/19 06:12 06:30 06:30 WBC 4.5 RBC 4.19 Hgb 14.1 Hct 41.2 MCV 98.4 H MCH 33.7 MCHC 34.3 RDW 16.9 H Plt Count 97 L MPV 9.3 Absolute Neuts (auto) 2.4 Neutrophils % 54.2 Lymphocytes % 30.9 D Monocytes % 9.7 Eosinophils % 4.7 H Basophils % 0.5 Nucleated RBC % 0 PT with INR INR Sodium Potassium Chloride Carbon Dioxide Anion Gap BUN Creatinine Est GFR (CKD-EPI)AfAm Est GFR (CKD-EPI)NonAf POC Glucometer 123 Random Glucose Hemoglobin A1c % 8.0 H Calcium Phosphorus Magnesium Total Bilirubin AST ALT Alkaline Phosphatase Creatine Kinase Creatine Kinase Index CK-MB (CK-2) Troponin I Total Protein Albumin Triglycerides Cholesterol Total LDL Cholesterol HDL Cholesterol Lipase TSH Blood Type Antibody Screen 03/26/19 03/26/19 03/26/19 06:30 06:30 15:25 WBC RBC Hgb Hct MCV MCH MCHC RDW Plt Count MPV Absolute Neuts (auto) Neutrophils % Lymphocytes % Monocytes % Eosinophils % Basophils % Nucleated RBC % PT with INR INR Sodium 140 Potassium 3.9 Chloride 104 Carbon Dioxide 28 Anion Gap 7 L BUN 19.6 H Creatinine 0.7 Est GFR (CKD-EPI)AfAm 123.13 Est GFR (CKD-EPI)NonAf 106.24 POC Glucometer 183 Random Glucose 126 H Hemoglobin A1c % Calcium 8.0 L Phosphorus 3.4 Magnesium 2.0 Total Bilirubin 1.4 H AST 26 ALT 29 Alkaline Phosphatase 98 Creatine Kinase Creatine Kinase Index CK-MB (CK-2) Troponin I Total Protein 6.8 Albumin 3.2 L Triglycerides 85 Cholesterol 166 Total LDL Cholesterol 93 HDL Cholesterol 61 H Lipase TSH 0.91 Blood Type Antibody Screen Active Medications Generic Name Dose Route Start Last Admin Trade Name Freq PRN Reason Stop Dose Admin Aspirin 81 mg 03/26/19 10:00 03/26/19 10:35 Asa - PO 81 mg DAILY [facility] Administration Atorvastatin Calcium 40 mg 03/26/19 22:00 Lipitor - PO HS EFRA Clopidogrel Bisulfate 75 mg 03/26/19 10:00 03/26/19 10:35 Plavix - PO 75 mg DAILY [facility] Administration Heparin Sodium (Porcine) 5,000 unit 03/26/19 06:00 03/26/19 15:18 Heparin - SQ 5,000 unit TID EFRA Administration Insulin Aspart 1 vial 03/25/19 22:00 03/26/19 16:18 Novolog Vial Sliding Scale - SQ 2 units ACHS [facility]RA Administration Protocol Insulin Detemir 10 units 03/26/19 22:00 Levemir Vial SQ HS [facility] Lisinopril 20 mg 03/26/19 10:00 03/26/19 10:35 Prinivil PO 20 mg DAILY [facility]RA Administration ASSESSMENT/PLAN: 53 yo M with a PMHx of [place], 1 drug eluding stent (06/30), HTN, HLD, DM, presented to the ED with intermittent, sub-sternal, non-radiating, chest discomfort #Chest discomfort/Atypical Chest Pain -Nuclear Stress performed today-------> Large Anteroapical infarction with kipg-hajw-wijxyzl ischemia. Moderate inferolateral ischemia. LVEF 31%, severely reduced with wall motion abnormalities. -tele monitoring -1st trop 0.03, repeat 0.03 as well -ASA 324 given in ED. Continue w/ ASa 81 Daily and Plavix 75 Daily -Given nitro SL -lipid panel---> LDL 93, pt Diabetic, want LDL below 70. Will increase Atorvastatin to 40 Daily -obtain echo from camera repairer -cardiology Dr. Quinones on board -TSH 0.91 #HTN - Lisinopril 25mg #HLD -Increase Atoravastatin to 40mg - lipid panel noted #DM -hold Januvia -BGM -SSI -Hgb A1c 8.0% #FEN -no iv fluids -monitor -diabetic diet #Dvt ppx -hep sq dispo: tele Visit type - Emergency Visit Emergency Visit: Yes ED Registration Date: 03/25/19 Care time: The patient presented to the Emergency Department on the above date and was hospitalized for further evaluation of their emergent condition. - New Patient This patient is new to me today: Yes Date on this admission: 03/26/19 - Critical Care Critical Care patient: No - Discharge Referral Referred to [facility] No
[2019-03-26] MEDS ORDERED: ATORVASTATIN CA 40 MG TABLET (FP) PO SCH (22:00)
[2019-03-26] MEDS: INSULIN (LEVEMIR) 100 UNITS/ML UNITS SQ SCH (22:09)
[2019-03-27] MEDS: INSULIN SLIDING SCALE (NOVOLOG) 1 VIAL SQ SCH ×4 (06:43→23:08)
[2019-03-27] MEDS: HEPARIN NA (PORCINE) 5,000 UNITS/ML 1ML VIAL SQ SCH (06:44)
[2019-03-27 07:46] LABS: BLOOD UREA NITROGEN 17.6 mg/dL (7-18); CALCIUM 8.4 mg/dL (8.5-10.1); CREATININE 0.8 mg/dL (0.55-1.3); MAGNESIUM 2.1 mg/dL (1.8-2.4); PHOSPHOROUS 3.6 mg/dL (2.5-4.9); POTASSIUM 4.7 mmol/L (3.5-5.1)
[2019-03-27 07:52] LABS: HEMATOCRIT 44.4 % (35.4-49); HEMOGLOBIN 15.3 GM/dL (11.7-16.9); MCH 33.9 pg (25.7-33.7); MCHC 34.5 g/dl (32.0-35.9); MEAN CELL VOLUME 98.2 fl (80-96); MEAN PLT VOLUME 9.3 fl (7.5-11.1); PLATELET COUNT 116 K/MM3 (134-434); RBC 4.52 M/mm3 (4.00-5.60); RDW 16.9 % (11.9-15.9)
[2019-03-27] MEDS ORDERED: HEPARIN NA (PORCINE) 5,000 UNITS/ML 1ML VIAL IVPUSH PRN ×2 (08:28)
--- NOTE | 2019-03-27 09:07 | PN ---
Physical Exam: SUBJECTIVE: Patient seen and examined at bedside. c/o left sided CP w/o radiation. States it is similar to the CP he came in with. EKG, Trop ordered. OBJECTIVE: Vital Signs Period Temp Pulse Resp BP Sys/Hillman Pulse Ox Last 24 Hr 98.2 F-98.7 F 68-76 18-20 100-120/61-69 96-97 GENERAL: The patient is awake, alert, and fully oriented, in no acute distress. LUNGS: Breath sounds equal, clear to auscultation bilaterally, no wheezes, no crackles, no accessory muscle use. HEART: Regular rate and rhythm, S1, S2 without murmur, rub or gallop. ABDOMEN: Soft, nontender, nondistended, normoactive bowel sounds, no guarding, no rebound, no hepatosplenomegaly, no masses. EXTREMITIES: 2+ pulses, warm, well-perfused, no edema. NEUROLOGICAL: Cranial nerves II through X grossly intact. Normal speech, gait not observed. SKIN: Warm, dry, normal turgor, no rashes or lesions noted Laboratory Results - last 24 hr 03/26/19 03/26/19 03/27/19 15:25 22:01 05:55 WBC RBC Hgb Hct MCV MCH MCHC RDW Plt Count MPV Sodium Potassium Chloride Carbon Dioxide Anion Gap BUN Creatinine Est GFR (CKD-EPI)AfAm Est GFR (CKD-EPI)NonAf POC Glucometer 183 155 160 Random Glucose Calcium Phosphorus Magnesium Troponin I 03/27/19 03/27/19 06:33 06:33 WBC 4.0 RBC 4.52 Hgb 15.3 Hct 44.4 MCV 98.2 H MCH 33.9 H MCHC 34.5 RDW 16.9 H Plt Count 116 L MPV 9.3 Sodium 136 Potassium 4.7 Chloride 102 Carbon Dioxide 31 Anion Gap 3 L BUN 17.6 Creatinine 0.8 Est GFR (CKD-EPI)AfAm 116.56 Est GFR (CKD-EPI)NonAf 100.57 POC Glucometer Random Glucose 145 H Calcium 8.4 L Phosphorus 3.6 Magnesium 2.1 Troponin I 0.02 Active Medications Generic Name Dose Route Start Last Admin Trade Name Freq PRN Reason Stop Dose Admin Aspirin 81 mg 03/26/19 10:00 03/26/19 10:35 Asa - PO 81 mg DAILY EFRA Administration Atorvastatin Calcium 40 mg 03/26/19 22:00 03/26/19 22:11 Lipitor - PO 40 mg HS EFRA Administration Clopidogrel Bisulfate 75 mg 03/26/19 10:00 03/26/19 10:35 Plavix - PO 75 mg DAILY EFRA Administration Heparin Sodium (Porcine) 1,000 unit 03/27/19 08:28 Heparin - IVPUSH PRN PRN Heparin Heparin Sodium (Porcine) 5,000 unit 03/27/19 08:28 Heparin - IVPUSH PRN PRN Heparin Heparin Sodium (Porcine) 25, 500 mls @ 20 mls/hr 03/27/19 08:30 000 unit/ Sodium Chloride IV TITR EFRA Protocol 1,000 UNIT/HR Insulin Aspart 1 vial 03/25/19 22:00 03/27/19 06:43 Novolog Vial Sliding Scale - SQ Not Given ACHS [facility] Protocol Insulin Detemir 10 units 03/26/19 22:00 03/26/19 22:09 Levemir Vial SQ 10 units HS [facility] Administration Lisinopril 20 mg 03/26/19 10:00 03/26/19 10:35 Prinivil PO 20 mg DAILY [facility] Administration ASSESSMENT/PLAN: 53 yo M with a PMHx of [place], 1 drug eluding stent (06/30), HTN, HLD, DM, presented to the ED with intermittent, sub-sternal, non-radiating, chest discomfort #Chest discomfort/Atypical Chest Pain -Sestimibi yesterday shows Large Anteroapical infarction with mild-rina- infarct ischemia. Moderate inferolateral ischemia. LVEF 31%, severely reduced with wall motion abnormalities. -tele monitoring -f/u trop & EKG from this AM -Continue w/ asa 81 Daily and Plavix 75 Daily -Cardiology: Start heparin GTT due to continued chest pain; for possible cath on friday #HTN -Lisinopril 25mg #HLD -Atoravastatin 40mg -lipid panel noted #DM -hold Januvia -BGM -SSI -Hgb A1c 8.0% #FEN -no iv fluids indicated -replete PRN -diabetic diet #Dvt ppx -hep sq dispo: -admit tele -for possible cath on friday. Visit type - Emergency Visit Emergency Visit: Yes ED Registration Date: 03/27/19 Care time: The patient presented to the Emergency Department on the above date and was hospitalized for further evaluation of their emergent condition. - New Patient This patient is new to me today: No - Critical Care Critical Care patient: No - Discharge Referral Referred to [facility] No
[2019-03-27] MEDS: CLOPIDOGREL BISULFATE 75 MG TABLET (FP) PO SCH (09:27)
[2019-03-27] MEDS: ASPIRIN 81 MG CHEWABLE TABLETS PO SCH (09:27)
[2019-03-27] MEDS: LISINOPRIL 20 MG TABLET (FP) PO SCH (09:28)
[2019-03-27] MEDS: HEPARIN - 25,000 UNIT in SODIUM CHLORIDE 495 ML IV SCH (09:48)
--- NOTE | 2019-03-27 12:25 | EKG ---
Test Reason : Blood Pressure : / mmHG Vent. Rate : 073 BPM Atrial Rate : 073 BPM P-R Int : 174 ms QRS Dur : 108 ms QT Int : 418 ms P-R-T Axes : 032 -64 043 degrees QTc Int : 460 ms NORMAL SINUS RHYTHM LEFT ANTERIOR FASCICULAR BLOCK SEPTAL INFARCT (CITED ON OR BEFORE 17-MAY-2017) ABNORMAL ECG WHEN COMPARED WITH ECG OF 25-MAR-2019 16:44, INCOMPLETE RIGHT BUNDLE BRANCH BLOCK IS NO LONGER PRESENT QUESTIONABLE CHANGE IN INITIAL FORCES OF ANTEROSEPTAL LEADS Confirmed by MD ALVINA, JESS ([id number]) on 03/27/2019 12:25:12 PM Referred By: [facility] Confirmed By:JESS TINSLEY MD
--- NOTE | 2019-03-27 12:28 | PN ---
Teaching Attending Note Name of Resident: Ronald Gee ATTENDING PHYSICIAN STATEMENT I saw and evaluated the patient. I reviewed the resident's note and discussed the case with the resident. I agree with the resident's findings and plan as documented. SUBJECTIVE: No fever or chills. NO cp at time of evaluation 8:30, but earlier this am, he had cp in L side x 20 min and did not tell anyone. no radiation, felt like fluttering/deep pain in breast area, similar to the pain he had 2 days ago. OBJECTIVE: NAD CV: RRR Lungs: CTAB Ext: no edema or erythema ASSESSMENT AND PLAN: 53 y/o man with h/o CAD s/p [place] and ANNEMARIE 06/30 , HTN, HLP, who presented with CP at rest x 2 hours. 1- Unstable angina: - repeat EKG with no change from prior. - trop NL this am - start heparin gtt due to recurrent pain. - cont Asa and plavix and statin - d/w Dr. Bowen, who agreed with above and will work on transfer this weekend 2- DM: cont levemir and cont SSI. 3- HTN : cont lisinopril Dispo: for a transfer for cath when accepted
--- NOTE | 2019-03-27 14:41 | PN ---
Progress Note, Physician Chief Complaint: Pt A&Ox3; sitting up at bedside; Had similar chest pain this morning to that that brought him in. It lasted about 20 minutes. EKG: no significnat changes; TNI 0.02. History of Present Illness: Mr. Sierra is a 53 year old male with a past medical history of CAD, [place] s/p stent in [place] 06/2018, HTN, insulin dependent diabetes, and HLD, here today for evaluation of "weird" chest sensation. The patient reports that his chest sensation started at 11:30 AM while he was walking. He states it feels like a non radiating tingling in his L chest a/w some sharp tapping in the same area. He notes that it lasted for about an hour and resolved by itself. He states that it came back around 4:30 PM when he was eating. Patient describes his chest sensation as tapping fingers inside of his chest. At the time of my evaluation, the sensation has returned. He denies hx similar sxs. Denies tobacco or drug use. Denies associated diaphoresis, SOB, headache, focal weakness/numbness, dizziness, N/V, abd pain, or LE edema. Denies fever, chills. Denies recent travel or immobility. Denies calf pain. Take baby asa and plavix daily. Allergies: NKA - Current Medication List Current Medications: Active Medications Aspirin (Asa -) 81 mg PO DAILY [facility] Last Admin: 03/27/19 09:27 Dose: 81 mg Atorvastatin Calcium (Lipitor -) 40 mg PO HS [facility] Last Admin: 03/26/19 22:11 Dose: 40 mg Clopidogrel Bisulfate (Plavix -) 75 mg PO DAILY [facility] Last Admin: 03/27/19 09:27 Dose: 75 mg Heparin Sodium (Porcine) (Heparin -) 1,000 unit IVPUSH PRN PRN PRN Reason: Heparin Heparin Sodium (Porcine) (Heparin -) 5,000 unit IVPUSH PRN PRN PRN Reason: Heparin Heparin Sodium (Porcine) 25, (000 unit/ Sodium Chloride) 500 mls @ 20 mls/hr IV TITR [facility]; Protocol Last Admin: 03/27/19 09:48 Dose: 1,000 unit/hr, 20 mls/hr Insulin Aspart (Novolog Vial Sliding Scale -) 1 vial SQ [facility]; Protocol Last Admin: 03/27/19 12:06 Dose: 2 units Insulin Detemir (Levemir Vial) 10 units SQ HS [facility] Last Admin: 03/26/19 22:09 Dose: 10 units Lisinopril (Prinivil) 20 mg PO DAILY [facility] Last Admin: 03/27/19 09:28 Dose: 20 mg Metoprolol Tartrate (Lopressor -) 12.5 mg PO BID [facility] - Objective Vital Signs: Vital Signs Temperature 98.1 F 03/27/19 10:00 Pulse Rate 70 03/27/19 10:00 Respiratory Rate 18 03/27/19 10:00 Blood Pressure 112/62 03/27/19 10:00 O2 Sat by Pulse Oximetry (%) 96 03/27/19 11:00 Labs: CBC, BMP 03/27/19 06:33 03/27/19 06:33 INR, PTT INR 1.03 (0.83-1.09) 03/25/19 17:35 Problem List - Problems (1) Myocardial infarct, old Assessment/Plan: s/p coronary stent 06/2018 at [facility]. Continue ASA and clopidogrel. On lisinopril and metorolol. Stess MIBI yesterday: Lexiscan: myocardial ischemia suggested involving a moderaTE area of inferolateral wall, and MILD periinfarct anteOAPICALr wall; SEVEREL REDUCED lvef. Plan: IV heparin (recurrent ches pain this morning). Clopidgorel loaded yesterday; continue ASA. For transfer to [facility] for coronary angiogram (Dr. Johnston). Code(s): I25.2 - OLD MYOCARDIAL INFARCTION (2) Acute on chronic systolic (congestive) heart failure Assessment/Plan: On lisinopril. Start metoprolol. BUN/Cr, electrolytes, daily weight, Is and Os. For cornonary angiogram. Code(s): I50.23 - ACUTE ON CHRONIC SYSTOLIC (CONGESTIVE) HEART FAILURE (3) Overweight Code(s): E66.3 - OVERWEIGHT (4) Diabetes Assessment/Plan: On levemir and insulin. On lisinopril (HTN; CAD; systolic CHF; renal protection with DM). Code(s): E11.9 - TYPE 2 DIABETES MELLITUS WITHOUT COMPLICATIONS (5) Chest pain Code(s): R07.9 - CHEST PAIN, UNSPECIFIED Qualifiers: Chest pain type: other chest pain Qualified Code(s): R07.89 - Other chest pain; R07.8 - Other chest pain (6) HTN (hypertension) Code(s): I10 - ESSENTIAL (PRIMARY) HYPERTENSION Qualifiers: Hypertension type: essential hypertension Qualified Code(s): I10 - Essential (primary) hypertension (7) Hypercholesteremia Code(s): E78.00 - PURE HYPERCHOLESTEROLEMIA, UNSPECIFIED
[2019-03-27] MEDS ORDERED: INSULIN (NOVOLOG) ASPART 100 UNITS/ML 10ML VIAL ONE (21:25)
[2019-03-27] MEDS ORDERED: ATORVASTATIN CA 80 MG TABLET (FP) PO SCH (22:00)
[2019-03-27] MEDS: METOPROLOL TARTRATE 25 MG TABLET (FP) PO SCH (23:09)
[2019-03-27] MEDS: INSULIN (LEVEMIR) 100 UNITS/ML UNITS SQ SCH (23:09)
[2019-03-28] MEDS: INSULIN SLIDING SCALE (NOVOLOG) 1 VIAL SQ SCH ×3 (06:10→16:30)
[2019-03-28 07:25] LABS: BLOOD UREA NITROGEN 14.2 mg/dL (7-18); CALCIUM 8.6 mg/dL (8.5-10.1); CREATININE 0.6 mg/dL (0.55-1.3); POTASSIUM 3.8 mmol/L (3.5-5.1)
[2019-03-28 07:45] LABS: HEMATOCRIT 42.5 % (35.4-49); HEMOGLOBIN 14.4 GM/dL (11.7-16.9); MCH 33.4 pg (25.7-33.7); MCHC 33.9 g/dl (32.0-35.9); MEAN CELL VOLUME 98.5 fl (80-96); MEAN PLT VOLUME 9.3 fl (7.5-11.1); RBC 4.31 M/mm3 (4.00-5.60); RDW 16.8 % (11.9-15.9)
[2019-03-28 08:44] LABS: PLATELET COUNT 104 K/MM3 (134-434)
[2019-03-28] MEDS: HEPARIN - 25,000 UNIT in SODIUM CHLORIDE 495 ML IV SCH (09:11)
[2019-03-28] MEDS: LISINOPRIL 20 MG TABLET (FP) PO SCH (09:14)
[2019-03-28] MEDS: CLOPIDOGREL BISULFATE 75 MG TABLET (FP) PO SCH (09:14)
[2019-03-28] MEDS: ASPIRIN 81 MG CHEWABLE TABLETS PO SCH (09:14)
[2019-03-28] MEDS: METOPROLOL TARTRATE 25 MG TABLET (FP) PO SCH (09:14)
--- NOTE | 2019-03-28 13:42 | PN ---
Progress Note (short form) - Note Progress Note: Subjective: no fever or chills. no PC , feels stable Objective: Vital Signs: Last Vital Signs Temp Pulse Resp BP Pulse Ox 99.2 F 74 18 108/58 L 95 03/28/19 09:10 03/28/19 09:10 03/28/19 09:10 03/28/19 09:10 03/28/19 10:00 Laboratory Results - last 24 hr 03/27/19 03/27/19 03/27/19 16:58 17:10 19:20 WBC RBC Hgb Hct MCV MCH MCHC RDW Plt Count MPV PTT (Actin FS) 59.8 H Sodium Potassium Chloride Carbon Dioxide Anion Gap BUN Creatinine Est GFR (CKD-EPI)AfAm Est GFR (CKD-EPI)NonAf POC Glucometer 181 Random Glucose Calcium Creatine Kinase 95 Troponin I 0.02 03/27/19 03/28/19 03/28/19 23:07 06:09 06:35 WBC 5.0 RBC 4.31 Hgb 14.4 Hct 42.5 MCV 98.5 H MCH 33.4 MCHC 33.9 RDW 16.8 H Plt Count 104 L MPV 9.3 PTT (Actin FS) Sodium Potassium Chloride Carbon Dioxide Anion Gap BUN Creatinine Est GFR (CKD-EPI)AfAm Est GFR (CKD-EPI)NonAf POC Glucometer 248 105 Random Glucose Calcium Creatine Kinase Troponin I 03/28/19 03/28/19 03/28/19 06:35 06:35 12:24 WBC RBC Hgb Hct MCV MCH MCHC RDW Plt Count MPV PTT (Actin FS) 57.4 H Sodium 137 Potassium 3.8 Chloride 103 Carbon Dioxide 26 Anion Gap 8 BUN 14.2 Creatinine 0.6 Est GFR (CKD-EPI)AfAm 131.19 Est GFR (CKD-EPI)NonAf 113.19 POC Glucometer 186 Random Glucose 105 Calcium 8.6 Creatine Kinase Troponin I Physical Exam: NAD CV: RRR Lungs: CTAB Ext: no edema or erythema ASSESSMENT AND PLAN: 53 y/o man with h/o CAD s/p [place] and [place]AR[place] 06/30 , HTN, HLP, who presented with CP at rest x 2 hours. 1- Unstable angina: - rcont heparin gtt, statin, BB, AsA, and plavx - Tx for cath 2- DM: cont levemir and cont SSI. takes januvia as ut pt 3- HTN : cont lisinopril , and B ( added here ) Dispo: for a transfer for cath today Visit type - Emergency Visit Emergency Visit: Yes ED Registration Date: 03/27/19 Care time: The patient presented to the Emergency Department on the above date and was hospitalized for further evaluation of their emergent condition. - New Patient This patient is new to me today: No - Critical Care Critical Care patient: No
[2019-03-28 15:29] VITALS: BP 95/53; PULSE 70; TEMP 98
--- NOTE | 2019-03-28 17:02 | EKG ---
Test Reason : Blood Pressure : / mmHG Vent. Rate : 071 BPM Atrial Rate : 071 BPM P-R Int : 188 ms QRS Dur : 110 ms QT Int : 412 ms P-R-T Axes : 052 -68 040 degrees QTc Int : 447 ms POOR DATA QUALITY, INTERPRETATION MAY BE ADVERSELY AFFECTED NORMAL SINUS RHYTHM INCOMPLETE RIGHT BUNDLE BRANCH BLOCK LEFT ANTERIOR FASCICULAR BLOCK ANTEROSEPTAL INFARCT (CITED ON OR BEFORE 17-MAY-2017) ABNORMAL ECG WHEN COMPARED WITH ECG OF 26-MAR-2019 11:53, QUESTIONABLE CHANGE IN INITIAL FORCES OF ANTERIOR LEADS Confirmed by MD ALVINA, JESS ([id number]) on 03/28/2019 5:02:24 PM Referred By: Confirmed By:JESS TINSLEY MD
--- NOTE | 2019-03-28 17:05 | EKG ---
Test Reason : Blood Pressure : / mmHG Vent. Rate : 072 BPM Atrial Rate : 072 BPM P-R Int : 174 ms QRS Dur : 114 ms QT Int : 410 ms P-R-T Axes : 054 -65 061 degrees QTc Int : 448 ms NORMAL SINUS RHYTHM INCOMPLETE RIGHT BUNDLE BRANCH BLOCK LEFT ANTERIOR FASCICULAR BLOCK ANTEROSEPTAL INFARCT (CITED ON OR BEFORE 17-MAY-2017) ABNORMAL ECG WHEN COMPARED WITH ECG OF 26-MAR-2019 11:53, INCOMPLETE RIGHT BUNDLE BRANCH BLOCK IS NOW PRESENT QUESTIONABLE CHANGE IN INITIAL FORCES OF ANTERIOR LEADS Confirmed by MD ALVINA, JESS ([id number]) on 03/28/2019 5:04:56 PM Referred By: Confirmed By:JESS TINSLEY MD
--- NOTE | 2019-03-29 17:36 | DS ---
Physical Exam: HOSPITAL COURSE: Date of Admission:03/27/19 Pt is a 53 yo M with a PMHx of [place], 1 drug eluding stent (06/30), HTN, HLD, DM, who presented to [facility] with intermittent, sub-sternal, non-radiating, and chest discomfort. EKG revealed no acute changes- NSR, L Ant Fascicular block, L axis. Troponin was negative x3. Pt subsequently underwent a nuclear stress test which revealed a "Large Anteroapical infarction with [id number]-[id number] ischemia. Moderate inferolateral ischemia. LVEF 31%, severely reduced with wall motion abnormalities." Pt was placed on IV heparin. pt was also placed on Lipitor, ASA, and Plavix. LDL was in the 90s and Lipitor was thus increased to 40 mg. Pt transferred for cath. Date of Discharge: 03/28/19 Minutes to complete discharge: 35 Discharge Summary Reason For Visit: CHEST PAIN Condition: Stable - Instructions Diet, Activity, Other Instructions: being transferred to [place] for cath Disposition: TRANSFER ACUTE CARE/OTHER HOSP - Home Medications Comprehensive Discharge Medication List: Ambulatory Orders Sitagliptin Phosphate [Januvia] 25 mg PO BID #60 tab 05/21/17 Aspirin [ASA -] 1 tab PO DAILY 08/27/18 Clopidogrel Bisulfate [Plavix] 75 mg PO DAILY 08/27/18 Lisinopril [Zestril] 2.5 mg PO DAILY 03/25/19 Insulin Glargine,Hum.rec.anlog [Basaglar Kwikpen U-100] 10 unit SQ HS 03/26/19 Atorvastatin Ca [Lipitor] 80 mg PO HS tablet 03/28/19 Heparin - 25,000 unit IV TITR vial 03/28/19 Insulin Sliding Scale [Novolog Vial Sliding Scale -] 1 vial SQ ACHS units 03/28 Metoprolol Tartrate [Lopressor -] 12.5 mg PO BID tablet 03/28/19 This patient is new to me today: No Emergency Visit: Yes ED Registration Date: 03/27/19 Care time: The patient presented to the Emergency Department on the above date and was hospitalized for further evaluation of their emergent condition. Critical Care patient: No - Discharge Referral Referred to [facility] Med P.C.: No
== END 2019-03-28 17:21 | disposition short-term general hospital (02) | DRG 280 ==
LOC: JER 16:37 → JERBED 18:55 → J4W 20:21 → OBSVTOIN 03-27 12:29
PROVIDERS: ADMIT Internal Medicine; ATTEND Internal Medicine
DX: I21.09 ST elevation (STEMI) myocardial infarction involving other coronary artery of anterior wall (principal); I50.23 Acute on chronic systolic (congestive) heart failure; I11.0 Hypertensive heart disease with heart failure; I25.2 Old myocardial infarction; I25.10 Atherosclerotic heart disease of native coronary artery without angina pectoris; Z79.4 Long term (current) use of insulin; E78.5 Hyperlipidemia, unspecified; E11.65 Type 2 diabetes mellitus with hyperglycemia; E66.3 Overweight; Z68.29 Body mass index [BMI] 29.0-29.9, adult; I44.4 Left anterior fascicular block; Z95.5 Presence of coronary angioplasty implant and graft
CPT/HCPCS: 36415; 71045-TC-FY; 78452-TC; 80048; 80053; 80061; 82550; 82553; 82962; 83036; 83690; 83721; 83735; 84100; 84443; 84484; 85025; 85027; 85610; 85730; 93005; 93010; 93017; 93306-TC; 99284-25; A9502; G0378; J1644; J2785

== ENCOUNTER 2019-09-18 14:35 | Observation (INO) | payer MEDICARE, OTHER ==
--- NOTE | 2019-09-18 16:24 | PDOC ---
Attending Attestation - Resident Resident Name: Rissa Gold - HPI HPI: 09/18/19 18:47 Pt presents to the ED complaining of L sided chest pain that "feels like fingers tapping at my chest". Pain began while walking and resolved with rest. PAtient has extensive history of known cardiac disease, and these symptoms are similar to his symptoms in March when he had an NSTEMI and stent placement. Patient reports that he is due to have a "procedure" for a blocked artery on . - Physicial Exam PE: 09/18/19 18:54 Agree with resident exam. patient is alert and oriented and in no acute distress. Lungs are clear, heart regular rate and rhythm. Abdomen is soft, non tender, non distended without guarding or rebound. - Medical Decision Making 09/18/19 18:55 Pt presents to the ED complaining of chest discomfort. EKG shows no evidence of ischemia, but given risk factors, will admit to medicine for rule out ACS.
[2019-09-18] MEDS ORDERED: ASPIRIN 81 MG CHEWABLE TABLETS PO ONE (17:00)
--- NOTE | 2019-09-18 17:06 | PDOC ---
History of Present Illness - General Chief Complaint: Chest Pain Stated Complaint: CHEST PAIN Time Seen by Provider: 09/18/19 16:24 - History of Present Illness Initial Comments: Rafita Sierra is a 54yo man with a PMH of [place] x2 (06/2018 and 03/2019), stent x2, CHF (LVEF 31% 03/2019), HTN, HLD, DM who presents to the ED with left-sided chest pain this afternoon. He reports that he was walking to visit friends when he started to have the pain, which was located in the left lateral mid chest. He says that the pain lasted several minutes, stopped, and returned again. It has occurred intermittently since starting at around 3pm today. He is unable to quantify the intensity of the pain and cannot say whether it is similar to pain he has had in the past. He says it feels like someone is "poking him in the chest." The pain was not associated with exertion, movement, breathing, or using his arms and also not relieved by rest. Mr Sierra denies any pain radiation or associated nausea, sweating, lightheadedness, difficulty breathing, or other symptoms associated with the pain. He says it is "not that bad" but his manager simulation told him to come to the hospital if he ever had chest pain. Past History - Past Medical History Allergies/Adverse Reactions: Allergies Allergy/AdvReac Type Severity Reaction Status Date / Time No Known Allergies Allergy Verified 09/18/19 14:56 Home Medications: Ambulatory Orders Sitagliptin Phosphate [Januvia] 25 mg PO BID #60 tab 05/21/17 Aspirin [ASA -] 1 tab PO DAILY 08/27/18 Clopidogrel Bisulfate [Plavix] 75 mg PO DAILY 08/27/18 Lisinopril [Zestril] 2.5 mg PO DAILY 03/25/19 Insulin Glargine,Hum.rec.anlog [Basaglar Kwikpen U-100] 10 unit SQ HS 03/26/19 Atorvastatin Ca [Lipitor] 80 mg PO HS tablet 03/28/19 Insulin Sliding Scale [Novolog Vial Sliding Scale -] 1 vial SQ ACHS units 03/28 Metoprolol Succinate 25 mg PO DAILY 09/18/19 Asthma: No Cardiac Disorders: No (cardiac stent placedx 2) COPD: No Diabetes: Yes GI Disorders: No Disorders: Yes (kidney stones lithotripsy) HTN: Yes Hypercholesterolemia: Yes Kidney Stones: Yes Seizures: No - Surgical History Abdominal Surgery: No Appendectomy: No Cardiac Surgery: Yes (stent taped) Cholecystectomy: No Lung Surgery: No Neurologic Surgery: No Orthopedic Surgery: No - Reproductive History Testicular Surgery: No - Immunization History Immunization Up to Date: Yes - Psycho Social/Smoking Cessation Hx Smoking History: Never smoked Have you smoked in the past 12 months: No Number of Cigarettes Smoked Daily: 1 If you are a former smoker, when did you quit?: quit years ago Information on smoking cessation initiated: No 'Breaking Loose' booklet given: 05/18/17 Hx Alcohol Use: No Drug/Substance Use Hx: No Substance Use Type: None Hx Substance Use Treatment: No Review of Systems - Review of Systems Comments:: General: No fevers, no chills, no weight or appetite change, no malaise HEENT: No changes in vision, no changes in hearing, no congestion, no sore throat CV: + chest pain, no palpitations, no LE edema Pulm: No SOB, no cough, no wheezing GI: No nausea or vomiting, no change in bowel habits, no melena : No frequency, no urgency, no dysuria Musc: No back pain, no joint swelling, no recent injury Skin: No rash, no lesions, no erythema Endo: No excessive thirst, no heat/cold intolerance Heme: No unusual bruising or bleeding, no swollen glands Neuro: No syncope, no numbness/tingling, no focal weakness Vasc: No claudication Psych: No recent change in mood, no SI or HI *Physical Exam - Vital Signs Last Vital Signs Temp Pulse Resp BP Pulse Ox 98.3 F 88 16 122/67 95 09/18/19 14:40 09/18/19 14:40 09/18/19 14:40 09/18/19 14:40 09/18/19 14:40 - Physical Exam General: Comfortable, no acute distress HEENT: Atraumatic, PERRL, EOMI, MMM, voice normal Cards: RRR, no murmur appreciated. No reproducible tenderness Pulm: Comfortable on room air, clear to auscultation bilaterally Abd: Soft, nontender, nondistended Ext: Atraumatic. No LE edema. ROM intact. WWP Skin: Normal color, no rashes or lesions Neuro: A&Ox3, CN grossly intact, normal speech, motor/sensory grossly intact and symmetric Psych: Mood appropriate to situation ED Treatment Course - LABORATORY CBC & Chemistry Diagram: 09/18/19 17:15 09/18/19 17:15 - RADIOLOGY Radiology Studies Ordered: Category Date Time Status CHEST PA & LAT [RAD] Stat Radiology 09/18/19 17:00 Ordered Medical Decision Making - Medical Decision Making 09/18/19 17:06 Rafita Sierra is a 54yo man with a PMH of [place] x2 (06/2018 and 03/2019), stent x2, CHF (LVEF 31% 03/2019), HTN, HLD, DM who presents to the ED with intermittent left-sided chest pain since 3pm this afternoon. He denies any associated nausea , sweating, lightheadedness, SOB or other recent symptoms. - Concerning for ACS given h/o [place] x2 with similar story per chart review - CBC, CMP, EKG, trop, CXR - ASA 162; already took 81mg today - EKG compelted in triage. HSR, HR 85, long QRS at 110. Left anterior fascicular block and left axis seen on prior EKG. Previous septal and lateral infarct noted. 09/18/19 17:29 - Pt endorsed to Dr Laureano that he is supposed to have a "procedure for a blocked artery" this . - Will attempt to contact pt's manager simulation when labs resulted 09/18/19 19:01 - Labs unremarkable. Trop negative - Pt does not know his manager simulation's name - Will admit for additional workup - Sign out given to Dr Schroeder. Will admit to telemetry on Dr Epps's service Discussed with Dr Sridevi Gold PGY2 Discharge - Discharge Information Problems reviewed: Yes Clinical Impression/Diagnosis: Chest pain Qualifiers: Chest pain type: other chest pain Qualified Code(s): R07.89 - Other chest pain Condition: Stable - Admission Yes - Follow up/Referral - Patient Discharge Instructions - Post Discharge Activity
[2019-09-18] MEDS ORDERED: ASPIRIN 81 MG CHEWABLE TABLETS ONE (17:21)
[2019-09-18 17:23] LABS: EOS % 2.9 % (0-4.5); HEMOGLOBIN 15.6 GM/dL (11.7-16.9); LYMPH % 25.4 % (8-40); MCH 34.3 pg (25.7-33.7); MEAN CELL VOLUME 100.8 fl (80-96); MEAN PLT VOLUME 9.7 fl (7.5-11.1); MONO % 9.9 % (3.8-10.2); NEUT % 60.8 % (42.8-82.8); PLATELET COUNT 133 K/MM3 (134-434); RBC 4.56 M/mm3 (4.00-5.60); RDW 14.3 % (11.9-15.9); WHITE BLOOD COUNT 6.1 K/mm3 (4.0-10.0)
[2019-09-18 17:38] LABS: INR 1.03 (0.83-1.09); PROTHROMBIN TIME (PATIENT) 12.2 SEC (9.7-13.0)
[2019-09-18 17:41] LABS: ACTIVATED PTT 33.1 SECONDS (25.2-36.5)
[2019-09-18 17:52] LABS: ALBUMIN 3.7 g/dl (3.4-5.0); ALK PHOS 151 U/L (45-117); ANION GAP 8 MMOL/L (8-16); BLOOD UREA NITROGEN 14.6 mg/dL (7-18); CALCIUM 8.8 mg/dL (8.5-10.1); CHLORIDE 98 mmol/L (98-107); CO2 28 mmol/L (21-32); CREATININE 0.8 mg/dL (0.55-1.3); GLUCOSE,RANDOM 263 mg/dL (74-106); POTASSIUM 4.4 mmol/L (3.5-5.1); SGOT/AST 59 U/L (15-37); SGPT/ALT 59 U/L (13-61); SODIUM 134 mmol/L (136-145)
--- NOTE | 2019-09-18 19:14 | PN ---
Teaching Attending Note Name of Resident: Iban Schroeder ATTENDING PHYSICIAN STATEMENT I saw and evaluated the patient. I reviewed the resident's note and discussed the case with the resident. I agree with the resident's findings and plan as documented. SUBJECTIVE: Patient is a 54 year old man with a PMH of [place] x2 (06/2018 and 03/2019), Stent x2 , CHF (LVEF 31% 03/2019), HTN, HLD, NIDDM and Kidney stone (s/p lithotripsy) who presents to the ER with left-sided chest pain this afternoon. He reports that he was walking to visit friends when he started to have the pain, which was located in the left lateral mid chest. He says that the pain lasted several minutes, stopped, and returned again. It has occurred intermittently since starting at around 3pm today. He is unable to quantify the intensity of the pain and cannot say whether it is similar to pain he has had in the past. He says it feels like someone is "poking him in the chest." The pain was not associated with exertion, movement, breathing, or using his arms and also not relieved by rest. He denies any pain radiation or associated nausea, sweating, lightheadedness, difficulty breathing, or other symptoms associated with the pain. He says it is "not that bad" but his anaesthetic technician told him to come to the hospital if he ever had chest pain. Denies tobacco, alcohol or illicit drug use. No recent travel or sick contacts. No significant family history. OBJECTIVE: Alert Vital Signs Period Temp Pulse Resp BP Sys/Hillman Pulse Ox Last 24 Hr 98.3 F 88 16 122/67 95 HEENT: No Jaundice, eye redness or discharge, PERRLA, EOMI. Normocephalic, atraumatic. External ears are normal and hearing is grossly intact. No nasal discharge. Neck: Supple, nontender. No palpable adenopathy or thyromegaly. No JVD Chest: Good effort. Clear to auscultation and percussion. Heart: Regular. No S3, rub or murmur Abdomen: Not distended, soft, nontender and no HSM. No rebound or guarding. Normal bowel sounds. Ext: Peripheral pulses intact. No leg edema. Cellulitis of his finger. Skin: Warm and dry. No petechiae, rash or ecchymosis. Neuro: Alert. Oriented x3. CN 2-12 grossly intact. Sensation grossly intact in all four extremities and DTR are symmetric. Psych: Appropriate mood and affect. Good insight. Current Medications Generic Name Dose Route Start Last Admin Trade Name Ran PRN Reason Stop Dose Admin Heparin Sodium (Porcine) 5,000 unit 09/18/19 22:00 Heparin - SQ TID [facility] Home Medications Medication Instructions Recorded Sitagliptin Phosphate [Januvia] 25 mg PO BID #60 tab 05/21/17 Aspirin [ASA -] 1 tab PO DAILY 08/27/18 Clopidogrel Bisulfate [Plavix] 75 mg PO DAILY 08/27/18 Lisinopril [Zestril] 2.5 mg PO DAILY 03/25/19 Insulin Glargine,Hum.rec.anlog 10 unit SQ HS 03/26/19 [Basaglar Kwikpen U-100] Atorvastatin Ca [Lipitor] 80 mg PO HS tablet 03/28/19 Insulin Sliding Scale [Novolog 1 vial SQ ACHS units 03/28/19 Vial Sliding Scale -] Metoprolol Tartrate [Lopressor -] 12.5 mg PO BID tablet 03/28/19 Abnormal Lab Results 09/18/19 09/18/19 17:15 17:15 MCV 100.8 H MCH 34.3 H Plt Count 133 L D Sodium 134 L Random Glucose 263 H AST 59 H Alkaline Phosphatase 151 H ASSESSMENT AND PLAN: 1. Chest pain -Pain is atypical but he has risk factors for ACS. Now painfree and comfortable. Got Aspirin 162 mg in the ER. EKG is unchanged showing NSR with LAFB, septal and lateral infarcts of undetermined age. No acute abnormality on CXR and urinalysis is pending. Admit to telemetry to rule out ACS , get ECHO, consult cardiology and continue ASA and Lipitor. Will treat finger cellulitis with Ancef. Fasting lipid profile done in March 2019. Will continue comprehensive care for all of patients comorbid conditions. 2. Uncontrolled DM For now, we will hold the home diabetes drugs and implement sliding scale insulin regimen. Provide comprehensive diabetes care with patient teaching and counseling about the importance of adherence to prescribed diabetes regimen, euglycemia, eye care and foot care. 3. Obesity Counseled on the risks associated with obesity. Will provide patient all the necessary assistance, counseling and positive reinforcement to facilitate weight loss. Consult steam blocker. 4. Hypertension - Restart suitable outpatient antihypertensive drugs when clinically appropriate. Revise regimen to ensure [id number] excellent BP control and commercial counsel patient on the injurious effects of uncontrolled hypertension. Nonpharmacologic measures to control hypertension like weight loss , salt restriction and exercise discussed. Importance of adherence to treatment regimen and attainment of normotension emphasized. 5. DVT prophylaxis - Lovenox 40 mg SQ q 24 hours. 6. Advance directives - Full code
--- NOTE | 2019-09-18 19:53 | HP ---
CHIEF COMPLAINT: Left Sided Chest pain PCP: [facility] HISTORY OF PRESENT ILLNESS: Pt is a 54 y/o M with a significant past medical history of CAD (s/p 2 stents [facility] 06/2018 and 03/2019), CHF (LVEF 31% 03/2019), NIDMM, and HTN who presents to [facility] [place] due to left sided chest pain. Pt endorses that chest pain commenced this afternoon around 2:30 pm; pt states he was walking to his garage when he began to feel a sharp, poking sensation on the left side of his chest. Pt cannot quantify the intensity of the pain or endorse if this pain is similar to the pain he experienced during his previous ACS episodes. Pain did not radiate anywhere and was not associated with nausea/vomiting, diaphoresis, dizziness, or shortness of breath. Pt does endorse a previous cardiac history where he has had to receive stents. ER course was notable for: (1) 1st trop negative (2) Chest XRAy no acute pathology (3) EKG--> Nl sinus rhythm, L anterior fascicular block, septal infarct. Unchanged from previous EKG. PAST MEDICAL HISTORY: as above PAST SURGICAL HISTORY: 2 Stent placements Social History: Smoking: denies Alcohol:denies Drugs: denies Allergies No Known Allergies Allergy (Verified 09/18/19 14:56) HOME MEDICATIONS: Home Medications Medication Instructions Recorded Sitagliptin Phosphate [Januvia] 25 mg PO BID #60 tab 05/21/17 Aspirin [ASA -] 1 tab PO DAILY 08/27/18 Clopidogrel Bisulfate [Plavix] 75 mg PO DAILY 08/27/18 Lisinopril [Zestril] 2.5 mg PO DAILY 03/25/19 Insulin Glargine,Hum.rec.anlog 10 unit SQ HS 03/26/19 [Basaglar Kwikpen U-100] Atorvastatin Ca [Lipitor] 80 mg PO HS tablet 03/28/19 Insulin Sliding Scale [Novolog 1 vial SQ ACHS units 03/28/19 Vial Sliding Scale -] Metoprolol Tartrate [Lopressor -] 12.5 mg PO BID tablet 03/28/19 REVIEW OF SYSTEMS CONSTITUTIONAL: Absent: fever, chills, diaphoresis, generalized weakness, malaise, loss of appetite, weight change HEENT: Absent: rhinorrhea, nasal congestion, throat pain, throat swelling, difficulty swallowing, mouth swelling, ear pain, eye pain, visual changes CARDIOVASCULAR: PRESENT chest pain RESPIRATORY: Absent: cough, shortness of breath, dyspnea with exertion, orthopnea, wheezing, stridor, hemoptysis GASTROINTESTINAL: Absent: abdominal pain, abdominal distension, nausea, vomiting, diarrhea, constipation, melena, hematochezia GENITOURINARY: Absent: dysuria, frequency, urgency, hesitancy, hematuria, flank pain, genital pain MUSCULOSKELETAL: Absent: myalgia, arthralgia, joint swelling, back pain, neck pain SKIN: Absent: rash, itching, pallor HEMATOLOGIC/IMMUNOLOGIC: Absent: easy bleeding, easy bruising, lymphadenopathy, frequent infections ENDOCRINE: Absent: unexplained weight gain, unexplained weight loss, heat intolerance, cold intolerance NEUROLOGIC: Absent: headache, focal weakness or paresthesias, dizziness, unsteady gait, seizure, mental status changes, bladder or bowel incontinence PSYCHIATRIC: Absent: anxiety, depression, suicidal or homicidal ideation, hallucinations. PHYSICAL EXAMINATION Vital Signs - 24 hr 09/18/19 14:40 Temperature 98.3 F Pulse Rate 88 Respiratory 16 Rate Blood Pressure 122/67 O2 Sat by Pulse 95 Oximetry (%) GENERAL: nad aaoX3 HEAD: Normal with no signs of trauma. EYES: eomi sclera clear EARS, NOSE, THROAT: mmm NECK: no jvd appreciated LUNGS: cta b/l HEART: rrr s1s2 ABDOMEN: ndnt soft MUSCULOSKELETAL: from LOWER EXTREMITIES: no cce NEUROLOGICAL: cn 2-12 intact Laboratory Results - last 24 hr 09/18/19 09/18/19 09/18/19 17:15 17:15 17:15 WBC 6.1 RBC 4.56 Hgb 15.6 Hct 46.0 MCV 100.8 H MCH 34.3 H MCHC 34.0 RDW 14.3 D Plt Count 133 L D MPV 9.7 Absolute Neuts (auto) 3.7 Neutrophils % 60.8 Lymphocytes % 25.4 Monocytes % 9.9 Eosinophils % 2.9 Basophils % 1.0 Nucleated RBC % 0 PT with INR 12.20 INR 1.03 PTT (Actin FS) 33.1 Sodium 134 L Potassium 4.4 Chloride 98 Carbon Dioxide 28 Anion Gap 8 BUN 14.6 Creatinine 0.8 Est GFR (CKD-EPI)AfAm 115.74 Est GFR (CKD-EPI)NonAf 99.86 Random Glucose 263 H Calcium 8.8 Magnesium Total Bilirubin 1.0 AST 59 H ALT 59 Alkaline Phosphatase 151 H Creatine Kinase 220 Creatine Kinase Index 1.4 CK-MB (CK-2) 3.1 Troponin I < 0.02 Total Protein 8.0 Albumin 3.7 09/18/19 17:15 WBC RBC Hgb Hct MCV MCH MCHC RDW Plt Count MPV Absolute Neuts (auto) Neutrophils % Lymphocytes % Monocytes % Eosinophils % Basophils % Nucleated RBC % PT with INR INR PTT (Actin FS) Sodium Potassium Chloride Carbon Dioxide Anion Gap BUN Creatinine Est GFR (CKD-EPI)AfAm Est GFR (CKD-EPI)NonAf Random Glucose Calcium Magnesium 2.1 Total Bilirubin AST ALT Alkaline Phosphatase Creatine Kinase Creatine Kinase Index CK-MB (CK-2) Troponin I Total Protein Albumin ASSESSMENT/PLAN: Pt is a 54 y/o M with a significant past medical history of CAD (s/p 2 stents [facility] 06/2018 and 03/2019), CHF (LVEF 31% 03/2019), NIDMM, and HTN who presents to [facility] [place] due to left sided chest pain. #Chest Pain. Rule out Acute Coronary Syndrome - Trop Neg. Trend Trop. -EKG reviewed -Tele monitoring -Cardiology Consult -Echocardiogram to assess for wall motion abnormalities -ASA administered in ED .Will continue on ASA 81 mg Daily #HTN -Continue Metoprolol Succinate 25 Daily #HLD -Atorvastatin 80 Daily #DM -ISS #FEN -NS@83 -Monitor Electrolytes -NPO in light of possible cardiac cath #DVT ppx: -HEp Sq TID #Dispo -Tele obs Visit type - Emergency Visit Emergency Visit: Yes ED Registration Date: 09/18/19 Care time: The patient presented to the Emergency Department on the above date and was hospitalized for further evaluation of their emergent condition. - New Patient This patient is new to me today: Yes Date on this admission: 09/18/19 - Critical Care Critical Care patient: No ATTENDING PHYSICIAN STATEMENT I saw and evaluated the patient. I reviewed the resident's note and discussed the case with the resident. I agree with the resident's findings and plan as documented. SUBJECTIVE: OBJECTIVE: ASSESSMENT AND PLAN:
[2019-09-18] MEDS ORDERED: CLOPIDOGREL BISULFATE 75 MG TABLET (FP) ONE (20:50)
[2019-09-18] MEDS: CLOPIDOGREL BISULFATE 75 MG TABLET (FP) PO SCH (20:59)
[2019-09-18 22:14] LABS: COCAINE, UR NEGATIVE ng/ml (CUTOFF=300); METHADONE, UR NEGATIVE ng/ml (CUTOFF=300); OPIATES, URI NEGATIVE ng/ml (CUTOFF=300); PHENCYCLIDINE,URINE NEGATIVE ng/ml (CUTOFF=25); URINE AMPHETAMINES NEGATIVE ng/ml (CUTOFF=500); URINE BARBITURATES NEGATIVE ng/ml (CUTOFF=200); URINE BENZODIAZEPINES NEGATIVE ng/ml (CUTOFF=200)
[2019-09-18] MEDS ORDERED: ATORVASTATIN CA 40 MG TABLET (FP) ONE ×2 (22:25→23:00)
[2019-09-18] MEDS: HEPARIN NA (PORCINE) 5,000 UNITS/ML 1ML VIAL SQ SCH (22:40)
[2019-09-18] MEDS ORDERED: HEPARIN NA (PORCINE) 5,000 UNITS/ML 1ML VIAL ONE (23:00)
[2019-09-18] MEDS: ATORVASTATIN CA 80 MG TABLET (FP) PO SCH (23:02)
[2019-09-18] MEDS: INSULIN SLIDING SCALE (NOVOLOG) 1 VIAL SQ SCH (23:03)
[2019-09-19] MEDS: HEPARIN NA (PORCINE) 5,000 UNITS/ML 1ML VIAL SQ SCH ×3 (06:25→22:13)
[2019-09-19 06:38] LABS: BASO % 0.5 % (0-2.0); EOS % 4.8 % (0-4.5); HEMATOCRIT 42.5 % (35.4-49); HEMOGLOBIN 14.7 GM/dL (11.7-16.9); LYMPH % 27.8 % (8-40); MCH 34.6 pg (25.7-33.7); MCHC 34.5 g/dl (32.0-35.9); MEAN CELL VOLUME 100.3 fl (80-96); MEAN PLT VOLUME 9.6 fl (7.5-11.1); MONO % 10.6 % (3.8-10.2); NEUT % 56.3 % (42.8-82.8); PLATELET COUNT 113 K/MM3 (134-434); RBC 4.24 M/mm3 (4.00-5.60); RDW 14.4 % (11.9-15.9); WHITE BLOOD COUNT 4.7 K/mm3 (4.0-10.0)
[2019-09-19 06:50] LABS: INR 1.11 (0.83-1.09); PROTHROMBIN TIME (PATIENT) 13.1 SEC (9.7-13.0)
[2019-09-19 07:19] LABS: ALBUMIN 3.2 g/dl (3.4-5.0); ALK PHOS 96 U/L (45-117); ANION GAP 7 MMOL/L (8-16); BILIRUBIN,TOTAL 1.9 mg/dL (0.2-1); BLOOD UREA NITROGEN 15.3 mg/dL (7-18); CALCIUM 8.5 mg/dL (8.5-10.1); CHLORIDE 99 mmol/L (98-107); CO2 28 mmol/L (21-32); CREATININE 0.7 mg/dL (0.55-1.3); GLUCOSE,RANDOM 173 mg/dL (74-106); PHOSPHOROUS 3.1 mg/dL (2.5-4.9); SGOT/AST 35 U/L (15-37); SGPT/ALT 46 U/L (13-61); SODIUM 135 mmol/L (136-145); TOT PROT 7.1 g/dl (6.4-8.2)
[2019-09-19] MEDS: INSULIN SLIDING SCALE (NOVOLOG) 1 VIAL SQ SCH ×4 (07:47→22:12)
[2019-09-19] MEDS: CLOPIDOGREL BISULFATE 75 MG TABLET (FP) PO SCH (09:33)
[2019-09-19] MEDS: ASPIRIN 81 MG CHEWABLE TABLETS PO SCH (09:33)
[2019-09-19] MEDS: metoPROLOL SUCCINATE 25 MG TAB.SR.24H (FP) PO SCH (09:33)
[2019-09-19] MEDS: LISINOPRIL 5 MG TABLET (FP) PO SCH (09:33)
--- NOTE | 2019-09-19 10:22 | CON.CARD ---
Consult Consult Specialty:: Cardiology (Coverage for Dr. Denis/Dr. Quinones) Referred by:: Hospitalist Reason for Consultation:: Cardiac evaluation - History of Present Illness Chief Complaint: Chest pain History of Present Illness: Patient is a 54 year old male with underlying history of CAD history of [place] s/p PCI/stent, low LVEF, HTN, hypercholesterolemia and DM who presented to ED with left sided chest discomfort. He denies radiation of pain and denies shortness of breath or palpitations. He denies paroxysmal nocturnal dyspnea or orthopnea. He denies fever or chills. He denies nausea, vomiting, diarrhea or abdominal pain. He denies headache or lightheadedness. He states that he is scheduled for cardiac catheterization at [facility] this . Currently, he appears to be comfortable without chest discomfort. - History Source History Provided By: Patient, Significant Other Limitations to Obtaining History: No Limitations - Past Medical History Cardio/Vascular: Yes: CAD, CHF (diastolic), HTN, [place] - Past Surgical History Past Surgical History: Yes: Stent (coronary ) - Alcohol/Substance Use Hx Alcohol Use: No - Smoking History Smoking history: Never smoked Have you smoked in the past 12 months: No Aproximately how many cigarettes per day: 1 If you are a former smoker, when did you quit?: quit years ago Home Medications - Allergies Allergies/Adverse Reactions: Allergies Allergy/AdvReac Type Severity Reaction Status Date / Time No Known Allergies Allergy Verified 09/18/19 14:56 - Home Medications Home Medications: Ambulatory Orders Sitagliptin Phosphate [Januvia] 25 mg PO BID #60 tab 05/21/17 Aspirin [ASA -] 1 tab PO DAILY 08/27/18 Clopidogrel Bisulfate [Plavix] 75 mg PO DAILY 08/27/18 Lisinopril [Zestril] 2.5 mg PO DAILY 03/25/19 Insulin Glargine,Hum.rec.anlog [Basaglar Kwikpen U-100] 10 unit SQ HS 03/26/19 Atorvastatin Ca [Lipitor] 80 mg PO HS tablet 03/28/19 Insulin Sliding Scale [Novolog Vial Sliding Scale -] 1 vial SQ ACHS units 03/28 Metoprolol Succinate 25 mg PO DAILY 09/18/19 Review of Systems - Review of Systems Constitutional: denies: Chills, Fever Cardiovascular: reports: Chest Pain. denies: Palpitations, Shortness of Breath Respiratory: denies: Cough, Hemoptysis, Orthopnea, PND, SOB, SOB on Exertion Genitourinary: denies: Dysuria, Hematuria Musculoskeletal: denies: Back Pain, Joint Pain Neurological: denies: Dizziness, Headache, Seizure, Syncope Vital Signs: Vital Signs Temperature 97.7 F 09/19/19 09:32 Pulse Rate 82 09/19/19 09:32 Respiratory Rate 18 09/19/19 09:32 Blood Pressure 133/73 09/19/19 09:32 O2 Sat by Pulse Oximetry (%) 98 09/19/19 09:32 Eyes: Yes: PERRL HENT: Yes: Atraumatic Neck: Yes: Supple Respiratory: Yes: CTA Bilaterally Gastrointestinal: Yes: Normal Bowel Sounds, Soft. No: Tenderness Cardiovascular: Yes: Regular Rate and Rhythm JVD: No PMI: Non-Displaced Heart Sounds: Yes: S1, S2. No: Clicks Edema: No - Other Data Labs, Other Data: CBC, BMP 09/19/19 05:50 09/19/19 05:50 INR, PTT INR 1.11 (0.83-1.09) H 09/19/19 05:50 Troponin, BNP 09/18/19 09/18/19 17:15 23:20 Troponin I < 0.02 < 0.02 Laboratory Results - last 24 hr 09/19/19 09/19/19 09/19/19 05:50 05:50 05:50 WBC 4.7 RBC 4.24 Hgb 14.7 Hct 42.5 MCV 100.3 H MCH 34.6 H MCHC 34.5 RDW 14.4 Plt Count 113 L MPV 9.6 Absolute Neuts (auto) 2.7 Neutrophils % 56.3 Lymphocytes % 27.8 Monocytes % 10.6 H Eosinophils % 4.8 H Basophils % 0.5 Nucleated RBC % 0 PT with INR 13.10 H INR 1.11 H PTT (Actin FS) 35.0 Sodium 135 L Potassium 4.0 Chloride 99 Carbon Dioxide 28 Anion Gap 7 L BUN 15.3 Creatinine 0.7 Est GFR (CKD-EPI)AfAm 122.27 Est GFR (CKD-EPI)NonAf 105.50 POC Glucometer Random Glucose 173 H Calcium 8.5 Phosphorus 3.1 Magnesium 2.0 Total Bilirubin 1.9 H Direct Bilirubin 0.3 H AST 35 ALT 46 Alkaline Phosphatase 96 Troponin I < 0.02 Total Protein 7.1 Albumin 3.2 L Sinus rhythm with poor R progression, ? anterior infarct Echo: Report Reviewed Imaging - Results Chest X-ray: Report Reviewed (Unremarkable) EKG: Report Reviewed Problem List - Problems (1) Acute on chronic systolic (congestive) heart failure Code(s): I50.23 - ACUTE ON CHRONIC SYSTOLIC (CONGESTIVE) HEART FAILURE (2) Chest pain Code(s): R07.9 - CHEST PAIN, UNSPECIFIED Qualifiers: Chest pain type: other chest pain Qualified Code(s): R07.89 - Other chest pain; R07.8 - Other chest pain (3) Myocardial infarct, old Code(s): I25.2 - OLD MYOCARDIAL INFARCTION (4) Diabetes Code(s): E11.9 - TYPE 2 DIABETES MELLITUS WITHOUT COMPLICATIONS (5) HTN (hypertension) Code(s): I10 - ESSENTIAL (PRIMARY) HYPERTENSION Qualifiers: Hypertension type: essential hypertension Qualified Code(s): I10 - Essential (primary) hypertension (6) Hypercholesteremia Code(s): E78.00 - PURE HYPERCHOLESTEROLEMIA, UNSPECIFIED (7) CAD (coronary artery disease) Code(s): I25.10 - ATHSCL HEART DISEASE OF [place] CORONARY ARTERY W/O ANG PCTRS (8) History of percutaneous coronary intervention Code(s): Z98.61 - CORONARY ANGIOPLASTY STATUS Assessment/Plan 1. CAD history of [place], s/p PCI/stent, angina pectoris 2. HTN 3. Hypercholesterolemia 4. DM PLAN: 1. Continue Metoprolol ER 25 mg QD and Lisinopril 2.5 mg QD 2. Continue ASA 81 mg QD and Plavix 75 mg QD 3. Consider adding Ranexa 500 mg BID 4. Atorvastatin 80 mg QHS 5. At the discretion of the primary cardiology service, may consider proceeding with cardiac catheterization on this admission with transfer to [facility] if he is already scheduled this coming week 6. He has been kept NPO just in case. Dr. Quinones and Adeel are to resume care on Friday Andrey Gorman MD
--- NOTE | 2019-09-19 17:18 | PN ---
Progress Note (short form) - Note Progress Note: SUBJECTIVE: No further chest discomfort. No cough/sputum/fever/chills. OBJECTIVE: Afebrile, Hemodynamically Stable Last Vital Signs Temp Pulse Resp BP Pulse Ox 98.1 F 75 18 120/77 97 09/19/19 16:40 09/19/19 16:40 09/19/19 12:26 09/19/19 16:40 09/19/19 16:40 HEENT - Atraumatic, Normocephalic. Heart - S1, S2, RRR Lungs - Clear to auscultation Abdomen - soft, non-tender. Bowel Sounds normal. Extremities - no calf tenderness. R index finger cuticle infection, some tenderness, swelling. Laboratory Results - last 24 hr 09/18/19 09/18/19 09/18/19 17:15 17:15 17:15 WBC 6.1 RBC 4.56 Hgb 15.6 Hct 46.0 MCV 100.8 H MCH 34.3 H MCHC 34.0 RDW 14.3 D Plt Count 133 L D MPV 9.7 Absolute Neuts (auto) 3.7 Neutrophils % 60.8 Lymphocytes % 25.4 Monocytes % 9.9 Eosinophils % 2.9 Basophils % 1.0 Nucleated RBC % 0 PT with INR 12.20 INR 1.03 PTT (Actin FS) 33.1 Sodium 134 L Potassium 4.4 Chloride 98 Carbon Dioxide 28 Anion Gap 8 BUN 14.6 Creatinine 0.8 Est GFR (CKD-EPI)AfAm 115.74 Est GFR (CKD-EPI)NonAf 99.86 POC Glucometer Random Glucose 263 H Calcium 8.8 Phosphorus Magnesium Total Bilirubin 1.0 AST 59 H ALT 59 Alkaline Phosphatase 151 H Creatine Kinase 220 Creatine Kinase Index 1.4 CK-MB (CK-2) 3.1 Troponin I < 0.02 Total Protein 8.0 Albumin 3.7 Opiates Screen Methadone Screen Barbiturate Screen Phencyclidine Screen Ur Amphetamines Screen MDMA (Ecstasy) Screen Benzodiazepines Screen Cocaine Screen U Marijuana (THC) Screen 09/18/19 09/18/19 09/18/19 17:15 21:40 22:12 WBC RBC Hgb Hct MCV MCH MCHC RDW Plt Count MPV Absolute Neuts (auto) Neutrophils % Lymphocytes % Monocytes % Eosinophils % Basophils % Nucleated RBC % PT with INR INR PTT (Actin FS) Sodium Potassium Chloride Carbon Dioxide Anion Gap BUN Creatinine Est GFR (CKD-EPI)AfAm Est GFR (CKD-EPI)NonAf POC Glucometer 210 Random Glucose Calcium Phosphorus Magnesium 2.1 Total Bilirubin AST ALT Alkaline Phosphatase Creatine Kinase Creatine Kinase Index CK-MB (CK-2) Troponin I Total Protein Albumin Opiates Screen Negative Methadone Screen Negative Barbiturate Screen Negative Phencyclidine Screen Negative Ur Amphetamines Screen Negative MDMA (Ecstasy) Screen Negative Benzodiazepines Screen Negative Cocaine Screen Negative U Marijuana (THC) Screen Negative 09/18/19 09/19/19 09/19/19 23:20 05:50 05:50 WBC 4.7 RBC 4.24 Hgb 14.7 Hct 42.5 MCV 100.3 H MCH 34.6 H MCHC 34.5 RDW 14.4 Plt Count 113 L MPV 9.6 Absolute Neuts (auto) 2.7 Neutrophils % 56.3 Lymphocytes % 27.8 Monocytes % 10.6 H Eosinophils % 4.8 H Basophils % 0.5 Nucleated RBC % 0 PT with INR 13.10 H INR 1.11 H PTT (Actin FS) 35.0 Sodium Potassium Chloride Carbon Dioxide Anion Gap BUN Creatinine Est GFR (CKD-EPI)AfAm Est GFR (CKD-EPI)NonAf POC Glucometer Random Glucose Calcium Phosphorus Magnesium Total Bilirubin AST ALT Alkaline Phosphatase Creatine Kinase Creatine Kinase Index CK-MB (CK-2) Troponin I < 0.02 Total Protein Albumin Opiates Screen Methadone Screen Barbiturate Screen Phencyclidine Screen Ur Amphetamines Screen MDMA (Ecstasy) Screen Benzodiazepines Screen Cocaine Screen U Marijuana (THC) Screen 09/19/19 09/19/19 09/19/19 05:50 07:06 11:21 WBC RBC Hgb Hct MCV MCH MCHC RDW Plt Count MPV Absolute Neuts (auto) Neutrophils % Lymphocytes % Monocytes % Eosinophils % Basophils % Nucleated RBC % PT with INR INR PTT (Actin FS) Sodium 135 L Potassium 4.0 Chloride 99 Carbon Dioxide 28 Anion Gap 7 L BUN 15.3 Creatinine 0.7 Est GFR (CKD-EPI)AfAm 122.27 Est GFR (CKD-EPI)NonAf 105.50 POC Glucometer 174 179 Random Glucose 173 H Calcium 8.5 Phosphorus 3.1 Magnesium 2.0 Total Bilirubin 1.9 H AST 35 ALT 46 Alkaline Phosphatase 96 Creatine Kinase Creatine Kinase Index CK-MB (CK-2) Troponin I < 0.02 Total Protein 7.1 Albumin 3.2 L Opiates Screen Methadone Screen Barbiturate Screen Phencyclidine Screen Ur Amphetamines Screen MDMA (Ecstasy) Screen Benzodiazepines Screen Cocaine Screen U Marijuana (THC) Screen 09/19/19 17:13 WBC RBC Hgb Hct MCV MCH MCHC RDW Plt Count MPV Absolute Neuts (auto) Neutrophils % Lymphocytes % Monocytes % Eosinophils % Basophils % Nucleated RBC % PT with INR INR PTT (Actin FS) Sodium Potassium Chloride Carbon Dioxide Anion Gap BUN Creatinine Est GFR (CKD-EPI)AfAm Est GFR (CKD-EPI)NonAf POC Glucometer 240 Random Glucose Calcium Phosphorus Magnesium Total Bilirubin AST ALT Alkaline Phosphatase Creatine Kinase Creatine Kinase Index CK-MB (CK-2) Troponin I Total Protein Albumin Opiates Screen Methadone Screen Barbiturate Screen Phencyclidine Screen Ur Amphetamines Screen MDMA (Ecstasy) Screen Benzodiazepines Screen Cocaine Screen U Marijuana (THC) Screen Current Medications Generic Name Dose Route Start Last Admin Trade Name Freq PRN Reason Stop Dose Admin Aspirin 81 mg 09/19/19 10:00 09/19/19 09:33 Asa - PO 81 mg DAILY [facility] Administration Atorvastatin Calcium 80 mg 09/18/19 22:00 09/18/19 23:02 Lipitor - PO 80 mg HS [facility] Administration Clopidogrel Bisulfate 75 mg 09/18/19 20:45 09/19/19 09:33 Plavix - PO 75 mg DAILY [facility] Administration Heparin Sodium (Porcine) 5,000 unit 09/18/19 22:00 09/19/19 14:49 Heparin - SQ 5,000 unit TID [facility] Administration Insulin Aspart 1 vial 09/18/19 22:00 09/19/19 11:38 Novolog Vial Sliding Scale - SQ 2 units ACHS [facility] Administration Protocol Lisinopril 2.5 mg 09/19/19 10:00 09/19/19 09:33 Prinivil PO 2.5 mg DAILY [facility] Administration Metoprolol Succinate 25 mg 09/19/19 10:00 09/19/19 09:33 Toprol Xl - PO 25 mg DAILY [facility] Administration Home Medications Medication Instructions Recorded Sitagliptin Phosphate [Januvia] 25 mg PO BID #60 tab 05/21/17 Aspirin [ASA -] 1 tab PO DAILY 08/27/18 Clopidogrel Bisulfate [Plavix] 75 mg PO DAILY 08/27/18 Lisinopril [Zestril] 2.5 mg PO DAILY 03/25/19 Insulin Glargine,Hum.rec.anlog 10 unit SQ HS 03/26/19 [Basaglar Kwikpen U-100] Atorvastatin Ca [Lipitor] 80 mg PO HS tablet 03/28/19 Insulin Sliding Scale [Novolog 1 vial SQ ACHS units 03/28/19 Vial Sliding Scale -] Metoprolol Succinate 25 mg PO DAILY 09/18/19 ASSESSMENT/PLAN: 54 year old male with history of [place] x 2 (06/2018 and 03/2019), s/p PCI/stent x2 , Chronic Systolic CHF (LVEF 31% 03/2019), HTN, HLD, DM 2 and Nephrolithiasis (s /p lithotripsy), presents to the ER with left-sided chest pain, onset while walking. 1. Chest Pain, etiology unclear. Given extensive recent CAD Hx including [place] x 2 (06/2018 and 03/2019), s/p PCI/ stent x2, need to exclude coronary etiology. Telemonitoring. Serial TropI neg x 3. ECG - no acute changes. Echo requested. Cardiology note still incomplete, awaiting recommendations, NPO from [place] for possible MPI 09/20 Continue Aspirin, Plavix, BB, KRISTIN-I, Statin 2. DM 2 - anti-hyperglycemic meds held. Novolog sliding scale. 3. HTN - Continue Metoprolol, Lisinopril. 4. Elevated Bilirubin, TBil 1.9. DBil requested. 5. Macrocytosis, MCV 100.3 - B12/Folate requested. 6. R index finger cuticle infection, with swelling and tenderness. Will give Augmentin and request Xray to exclude FB, evidence of OM. DVT Px - Heparin SQ Visit type - Emergency Visit Emergency Visit: Yes ED Registration Date: 09/18/19 Care time: The patient presented to the Emergency Department on the above date and was hospitalized for further evaluation of their emergent condition. - New Patient This patient is new to me today: Yes Date on this admission: 09/19/19 - Critical Care Critical Care patient: No - Discharge Referral Referred to [facility] No
[2019-09-19 18:50] VITALS: BMI 30.9
[2019-09-19 21:20] LABS: BILIRUBIN,DIRECT 0.3 mg/dL (0.0-0.2)
[2019-09-19] MEDS: ATORVASTATIN CA 80 MG TABLET (FP) PO SCH (22:13)
--- NOTE | 2019-09-20 00:23 | EKG ---
Test Reason : Blood Pressure : / mmHG Vent. Rate : 074 BPM Atrial Rate : 074 BPM P-R Int : 180 ms QRS Dur : 110 ms QT Int : 416 ms P-R-T Axes : 044 -67 055 degrees QTc Int : 461 ms NORMAL SINUS RHYTHM POOR R WAVE PROGRESSION LEFT ANTERIOR FASCICULAR BLOCK ANTEROLATERAL INFARCT (CITED ON OR BEFORE 17-MAY-2017) ABNORMAL ECG WHEN COMPARED WITH ECG OF 18-SEP-2019 14:48, NO SIGNIFICANT CHANGE WAS FOUND Confirmed by ZAIN NIETO MD ([id number]) on 09/20/2019 12:23:11 AM Referred By: Confirmed By:ZAIN NIETO MD
--- NOTE | 2019-09-20 01:04 | EKG ---
Test Reason : Blood Pressure : / mmHG Vent. Rate : 085 BPM Atrial Rate : 085 BPM P-R Int : 168 ms QRS Dur : 110 ms QT Int : 394 ms P-R-T Axes : 044 -74 063 degrees QTc Int : 468 ms NORMAL SINUS RHYTHM LEFT ANTERIOR FASCICULAR BLOCK SEPTAL INFARCT (CITED ON OR BEFORE 17-MAY-2017) POOR R WAVE PROGRESSION ABNORMAL ECG WHEN COMPARED WITH ECG OF 27-MAR-2019 18:46, NO SIGNIFICANT CHANGE WAS FOUND Confirmed by ZAIN NIETO MD ([id number]) on 09/20/2019 1:03:37 AM Referred By: Confirmed By:ZAIN NIETO MD
[2019-09-20] MEDS: INSULIN SLIDING SCALE (NOVOLOG) 1 VIAL SQ SCH ×3 (06:43→17:38)
[2019-09-20] MEDS: HEPARIN NA (PORCINE) 5,000 UNITS/ML 1ML VIAL SQ SCH ×2 (06:52→14:32)
--- NOTE | 2019-09-20 09:00 | PN ---
Progress Note, Physician History of Present Illness: Patient is a 54 year old male with underlying history of CAD history of [place] s/p PCI/stent, low LVEF, HTN, hypercholesterolemia and DM who presented to ED with left sided chest discomfort. He denies radiation of pain and denies shortness of breath or palpitations. He denies paroxysmal nocturnal dyspnea or orthopnea. He denies fever or chills. He denies nausea, vomiting, diarrhea or abdominal pain. He denies headache or lightheadedness. He states that he is scheduled for cardiac catheterization at [facility] this . Currently, he appears to be comfortable without chest discomfort. - Current Medication List Current Medications: Active Medications Amoxicillin/Clavulanate Potassium (Augmentin - 875mg Tablet) 1 tab PO BID@0800, 1730 [facility] Aspirin (Asa -) 81 mg PO DAILY [facility] Last Admin: 09/19/19 09:33 Dose: 81 mg Atorvastatin Calcium (Lipitor -) 80 mg PO HS [facility] Last Admin: 09/19/19 22:13 Dose: 80 mg Clopidogrel Bisulfate (Plavix -) 75 mg PO DAILY [facility] Last Admin: 09/19/19 09:33 Dose: 75 mg Heparin Sodium (Porcine) (Heparin -) 5,000 unit SQ TID [facility] Last Admin: 09/20/19 06:52 Dose: 5,000 unit Insulin Aspart (Novolog Vial Sliding Scale -) 1 vial SQ ACHS [facility]; Protocol Last Admin: 09/20/19 06:43 Dose: Not Given Lisinopril (Prinivil) 2.5 mg PO DAILY [facility] Last Admin: 09/19/19 09:33 Dose: 2.5 mg Metoprolol Succinate (Toprol Xl -) 25 mg PO DAILY [facility] Last Admin: 09/19/19 09:33 Dose: 25 mg Ranolazine (Ranexa -) 500 mg PO BID [facility] - Objective Vital Signs: Vital Signs Temperature 98.0 F 09/20/19 06:00 Pulse Rate 72 09/20/19 06:00 Respiratory Rate 18 09/20/19 06:00 Blood Pressure 130/79 09/20/19 06:00 O2 Sat by Pulse Oximetry (%) 96 09/19/19 23:00 Eyes: Yes: WNL, Conjunctiva Clear, EOM Intact HENT: Yes: WNL, Atraumatic, Normocephalic Neck: Yes: WNL, Supple, Trachea Midline Cardiovascular: Yes: WNL, Regular Rate and Rhythm Respiratory: Yes: WNL, Regular, CTA Bilaterally Gastrointestinal: Yes: WNL, Normal Bowel Sounds Genitourinary: Yes: WNL Musculoskeletal: Yes: WNL Extremities: Yes: WNL Edema: No Integumentary: Yes: WNL Neurological: Yes: WNL, Alert, Oriented ...Motor Strength: WNL Psychiatric: Yes: WNL Labs: CBC, BMP 09/19/19 05:50 09/19/19 05:50 INR, PTT INR 1.11 (0.83-1.09) H 09/19/19 05:50 Problem List - Problems (1) CAD (coronary artery disease) Code(s): I25.10 - ATHSCL HEART DISEASE OF [place] CORONARY ARTERY W/O ANG PCTRS (2) History of percutaneous coronary intervention Code(s): Z98.61 - CORONARY ANGIOPLASTY STATUS (3) Acute on chronic systolic (congestive) heart failure Code(s): I50.23 - ACUTE ON CHRONIC SYSTOLIC (CONGESTIVE) HEART FAILURE (4) Chest pain Code(s): R07.9 - CHEST PAIN, UNSPECIFIED Qualifiers: Chest pain type: other chest pain Qualified Code(s): R07.89 - Other chest pain; R07.8 - Other chest pain (5) Drug-induced mood disorder Code(s): F19.94 - OTH PSYCHOACTIVE SUBSTANCE USE, UNSP W MOOD DISORDER (6) Lightheaded Code(s): R42 - DIZZINESS AND GIDDINESS (7) Myocardial infarct, old Code(s): I25.2 - OLD MYOCARDIAL INFARCTION (9) Overweight Code(s): E66.3 - OVERWEIGHT (10) Anxiety and depression Code(s): F41.8 - OTHER SPECIFIED ANXIETY DISORDERS (11) Chronic bilateral low back pain Code(s): M54.5 - LOW BACK PAIN; G89.29 - OTHER CHRONIC PAIN Qualifiers: Sciatica presence: with sciatica Sciatica laterality: sciatica of left side Qualified Code(s): M54.42 - Lumbago with sciatica, left side (12) Cocaine dependence Code(s): F14.20 - COCAINE DEPENDENCE, UNCOMPLICATED Qualifiers: Substance use status: uncomplicated Qualified Code(s): F14.20 - Cocaine dependence, uncomplicated (13) Diabetes Code(s): E11.9 - TYPE 2 DIABETES MELLITUS WITHOUT COMPLICATIONS (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, managed as type 2 Code(s): E10.9 - TYPE 1 DIABETES MELLITUS WITHOUT COMPLICATIONS (15) EtOH dependence Code(s): F10.20 - ALCOHOL DEPENDENCE, UNCOMPLICATED Qualifiers: Substance use status: uncomplicated Qualified Code(s): F10.20 - Alcohol dependence, uncomplicated (16) HTN (hypertension) Code(s): I10 - ESSENTIAL (PRIMARY) HYPERTENSION Qualifiers: Hypertension type: essential hypertension Qualified Code(s): I10 - Essential (primary) hypertension (17) Hypercholesteremia Code(s): E78.00 - PURE HYPERCHOLESTEROLEMIA, UNSPECIFIED (18) Unstable angina Code(s): I20.0 - UNSTABLE ANGINA Assessment/Plan 1. CAD history of [place], s/p PCI/stent, admitted with atypical cp, "pinch like " r/ o [place] 2. HTN 3. Hypercholesterolemia 4. DM PLAN: 1. Continue Metoprolol ER 25 mg QD and Lisinopril 2.5 mg QD 2. Continue ASA 81 mg QD and Plavix 75 mg QD 3. Atorvastatin 80 mg QHS D?C home c.cath as outpatients 09-23-19 at [facility]
[2019-09-20] MEDS ORDERED: RANOLAZINE E.R. 500 MG TABLET (FP) PO SCH (10:00)
[2019-09-20 10:14] VITALS: TEMP 98.4
[2019-09-20 11:44] LABS: BASO % 0.5 % (0-2.0); EOS % 4.1 % (0-4.5); HEMOGLOBIN 15.2 GM/dL (11.7-16.9); LYMPH % 23.8 % (8-40); MCH 34.4 pg (25.7-33.7); MCHC 33.8 g/dl (32.0-35.9); MEAN CELL VOLUME 101.7 fl (80-96); MEAN PLT VOLUME 9.5 fl (7.5-11.1); MONO % 9.2 % (3.8-10.2); NEUT % 62.4 % (42.8-82.8); PLATELET COUNT 107 K/MM3 (134-434); RBC 4.42 M/mm3 (4.00-5.60); RDW 14.1 % (11.9-15.9); WHITE BLOOD COUNT 4.8 K/mm3 (4.0-10.0)
[2019-09-20 13:06] LABS: ALBUMIN 3.4 g/dl (3.4-5.0); BILIRUBIN,DIRECT 0.4 mg/dL (0.0-0.2); BILIRUBIN,TOTAL 1.8 mg/dL (0.2-1); BLOOD UREA NITROGEN 19.4 mg/dL (7-18); CALCIUM 8.6 mg/dL (8.5-10.1); CREATININE 0.8 mg/dL (0.55-1.3); POTASSIUM 4.1 mmol/L (3.5-5.1); TOT PROT 7.4 g/dl (6.4-8.2)
[2019-09-20] MEDS: ASPIRIN 81 MG CHEWABLE TABLETS PO SCH (14:27)
[2019-09-20] MEDS: LISINOPRIL 5 MG TABLET (FP) PO SCH (14:27)
[2019-09-20] MEDS: CLOPIDOGREL BISULFATE 75 MG TABLET (FP) PO SCH (14:27)
[2019-09-20] MEDS: metoPROLOL SUCCINATE 25 MG TAB.SR.24H (FP) PO SCH (14:29)
[2019-09-20 15:19] VITALS: BP 118/70; PULSE 84
--- NOTE | 2019-09-20 16:22 | PN ---
Teaching Attending Note Name of Resident: Xuan Devine ATTENDING PHYSICIAN STATEMENT I saw and evaluated the patient. I reviewed the resident's note and discussed the case with the resident. I agree with the resident's findings and plan as documented with exceptions below. SUBJECTIVE: Patient seen and examined. no chest pain or complaints. OBJECTIVE: Vital Signs Period Temp Pulse Resp BP Sys/Hillman Pulse Ox Last 24 Hr 98 F-98.5 F 69-85 18-22 118-134/70-84 95-97 Intake & Output 09/17/19 09/18/19 09/19/19 09/20/19 23:59 23:59 23:59 23:59 Intake Total 300 0 Balance 300 0 Weight 208 lb 203 lb 3.2 oz General: lying in bed in no acute distress Chest: CTAB, no rales or wheezing Abdomen:Soft, NT Extremities: no edema Home Medications Medication Instructions Recorded Aspirin [ASA -] 1 tab PO DAILY 08/27/18 Clopidogrel Bisulfate [Plavix] 75 mg PO DAILY 08/27/18 Lisinopril [Zestril] 2.5 mg PO DAILY 03/25/19 Insulin Glargine,Hum.rec.anlog 10 unit SQ HS 03/26/19 [Basaglar Kwikpen U-100] Atorvastatin Ca [Lipitor] 80 mg PO HS tablet 03/28/19 Metoprolol Succinate 25 mg PO DAILY 09/18/19 Amox-Tr/K Cl [Augmentin 875-125mg 1 tab PO BID@0800,1730 #14 tablet 09/20/19 Tablet -] Gatifloxacin/Dexamethasone 5 ml OS DAILY 09/20/19 [Gatifloxacin 0.5%-Dexamet 0.1%] Sitagliptin Phosphate [Januvia] 100 mg PO DAILY 09/20/19 Active Medications Amoxicillin/Clavulanate Potassium (Augmentin - 875mg Tablet) 1 tab PO BID@0800, 1730 [facility] Aspirin (Asa -) 81 mg PO DAILY [facility] Last Admin: 09/20/19 14:27 Dose: 81 mg Atorvastatin Calcium (Lipitor -) 80 mg PO HS [facility] Last Admin: 09/19/19 22:13 Dose: 80 mg Clopidogrel Bisulfate (Plavix -) 75 mg PO DAILY [facility] Last Admin: 09/20/19 14:27 Dose: 75 mg Heparin Sodium (Porcine) (Heparin -) 5,000 unit SQ TID [facility] Last Admin: 09/20/19 14:32 Dose: 5,000 unit Insulin Aspart (Novolog Vial Sliding Scale -) 1 vial SQ ACHS [facility]; Protocol Last Admin: 09/20/19 13:07 Dose: Not Given Lisinopril (Prinivil) 2.5 mg PO DAILY [facility] Last Admin: 09/20/19 14:27 Dose: 2.5 mg Metoprolol Succinate (Toprol Xl -) 25 mg PO DAILY [facility] Last Admin: 09/20/19 14:29 Dose: 25 mg Ranolazine (Ranexa -) 500 mg PO BID [facility] Last Admin: 09/20/19 14:29 Dose: 500 mg Laboratory Results - last 24 hr 09/19/19 09/19/19 09/19/19 05:50 17:13 22:12 WBC RBC Hgb Hct MCV MCH MCHC RDW Plt Count MPV Absolute Neuts (auto) Neutrophils % Lymphocytes % Monocytes % Eosinophils % Basophils % Nucleated RBC % Sodium 135 L Potassium 4.0 Chloride 99 Carbon Dioxide 28 Anion Gap 7 L BUN 15.3 Creatinine 0.7 Est GFR (CKD-EPI)AfAm 122.27 Est GFR (CKD-EPI)NonAf 105.50 POC Glucometer 240 243 Random Glucose 173 H Calcium 8.5 Phosphorus 3.1 Magnesium 2.0 Total Bilirubin 1.9 H Direct Bilirubin 0.3 H AST 35 ALT 46 Alkaline Phosphatase 96 Troponin I < 0.02 Total Protein 7.1 Albumin 3.2 L Vitamin B12 Serum Folate 09/20/19 09/20/19 09/20/19 06:32 11:20 11:20 WBC 4.8 RBC 4.42 Hgb 15.2 Hct 45.0 MCV 101.7 H MCH 34.4 H MCHC 33.8 RDW 14.1 Plt Count 107 L MPV 9.5 Absolute Neuts (auto) 3.0 Neutrophils % 62.4 Lymphocytes % 23.8 Monocytes % 9.2 Eosinophils % 4.1 Basophils % 0.5 Nucleated RBC % 0 Sodium 134 L Potassium 4.1 Chloride 100 Carbon Dioxide 27 Anion Gap 8 BUN 19.4 H Creatinine 0.8 Est GFR (CKD-EPI)AfAm 115.74 Est GFR (CKD-EPI)NonAf 99.86 POC Glucometer 154 Random Glucose 147 H Calcium 8.6 Phosphorus Magnesium Total Bilirubin 1.8 H Direct Bilirubin 0.4 H AST 35 ALT 44 Alkaline Phosphatase 92 Troponin I Total Protein 7.4 Albumin 3.4 Vitamin B12 420 Serum Folate 20 H 09/20/19 12:14 WBC RBC Hgb Hct MCV MCH MCHC RDW Plt Count MPV Absolute Neuts (auto) Neutrophils % Lymphocytes % Monocytes % Eosinophils % Basophils % Nucleated RBC % Sodium Potassium Chloride Carbon Dioxide Anion Gap BUN Creatinine Est GFR (CKD-EPI)AfAm Est GFR (CKD-EPI)NonAf POC Glucometer 150 Random Glucose Calcium Phosphorus Magnesium Total Bilirubin Direct Bilirubin AST ALT Alkaline Phosphatase Troponin I Total Protein Albumin Vitamin B12 Serum Folate ASSESSMENT AND PLAN: 54 year old male with history of [place] x 2 (06/2018 and 03/2019), s/p PCI/stent x2 , Chronic Systolic CHF (LVEF 31% 03/2019), HTN, HLD, DM 2 and Nephrolithiasis (s /p lithotripsy), presents to the ER with left-sided chest pain, onset while walking. -Atypical chest pain -IDDM -HTN -macrocytosis -Right index finger cuticle infection Plan: ACS ruled out Cardiology input noted 2D echo done, follow up Continue home regimen. Augmentin on dc Dc home if 2D echo with no concerns and no new events Discussed with patient, all questions answered.
--- NOTE | 2019-09-20 16:53 | ECHO ---
Name: CARIDAD MILES Exam:Adult Echocardiogram Study Date: 09/20/2019 09:11 AM Age: 54 yrs Reason For Study: Chest Pain, R/O Wall Motion Abnormality Height: 68 in Weight: 208 lb BSA: 2.1 m2 MMode/2D Measurements & Calculations IVSd: 0.89 cm Ao root diam: 3.2 cm LVIDd: 3.6 cm LA dimension: 2.8 cm LVIDs: 2.5 cm ACS: 1.9 cm LVPWd: 0.86 cm LVPWs: 3.7 cm EDV(Teich): 52.9 ml ESV(Teich): 23.4 ml LVOT diam: 2.0 cm RV S Marquis: 13.9 cm/sec Doppler Measurements & Calculations MV E max marquis: 65.6 cm/sec Ao V2 max: 102.5 cm/sec MV A max marquis: 90.3 cm/sec Ao max P.2 mmHg MV E/A: 0.73 Ao V2 mean: 78.5 cm/sec MV dec time: 0.20 sec Ao mean P.7 mmHg Ao V2 VTI: 25.2 cm ADELINE(I,D): 1.9 cm2 ADELINE(V,D): 2.2 cm2 LV V1 max P.9 mmHg SV(LVOT): 48.5 ml LV V1 mean P.95 mmHg LV V1 max: 69.6 cm/sec LV V1 mean: 45.2 cm/sec LV V1 VTI: 15.0 cm TR max marquis: 181.3 cm/sec PA V2 max: 58.2 cm/sec TR max P.3 mmHg PA max P.4 mmHg Med Peak E' Marquis: 4.3 cm/sec Med E/e': 15.3 Lat Peak E' Marquis: 6.1 cm/sec Lat E/e': 10.7 Procedure A complete two-dimensional transthoracic echocardiogram was performed (2D, M-mode, Doppler and color flow Doppler). Left Ventricle The left ventricle is normal in size. Left ventricular systolic function is normal. Ejection Fraction = 55- 60%. Grade I diastolic dysfunction, (abnormal relaxation pattern). Ratio E/E'= 15. No regional wall m otion abnormalities noted. Right Ventricle The right ventricle is normal size. The right ventricular systolic function is normal. RV systolic TD I is 14 cm/s. Atria The left atrial size is normal. Right atrial size is normal. Mitral Valve There is mild mitral annular calcification. There is no mitral regurgitation noted. Tricuspid Valve The tricuspid valve is normal in structure and function. No tricuspid regurgitation. Aortic Valve There is mild aortic sclerosis.;. No aortic regurgitation is present. Pulmonic Valve The pulmonic valve is not well visualized. Great Vessels The aortic root is normal size. Pericardium/Pleura There is no pericardial effusion. Interpretation Summary The left ventricle is normal in size. Left ventricular systolic function is normal. No regional wall motion abnormalities noted. Ejection Fraction = 55-60%. Grade I diastolic dysfunction, (abnormal relaxation pattern). Ratio E/E'= 15 The right ventricular systolic function is normal. The left atrial size is normal. Right atrial size is normal. There is mild mitral annular calcification. There is mild aortic sclerosis. There is no pericardial effusion. Andrey Gorman MD 09/20/2019 04:52 PM
--- NOTE | 2019-09-20 17:00 | DS ---
Physical Exam: SUBJECTIVE: Patient seen and examined in the morning. No acute events. No complaints of chest pain, no shortness of breath, no pleuritic pain, no abdominal pain, no nausea, vomiting, diarrhea. OBJECTIVE: Vital Signs Period Temp Pulse Resp BP Sys/Hillman Pulse Ox Last 24 Hr 98 F-98.5 F 69-85 18-22 118-134/70-84 95-97 PHYSICAL EXAM GENERAL: The patient is awake, alert, and fully oriented, in no acute distress. HEAD: Normal with no signs of trauma. EYES: PERRL, extraocular movements intact, sclera anicteric, conjunctiva clear. ENT: Ears normal, nares patent, oropharynx clear without exudates, moist mucous membranes. NECK: Trachea midline, full range of motion, supple. LUNGS: Breath sounds equal, clear to auscultation bilaterally, no wheezes, no crackles, no accessory muscle use. HEART: Regular rate and rhythm, S1, S2 without murmur, rub or gallop. Chest nontender to palpation. ABDOMEN: Soft, nontender, nondistended, normoactive bowel sounds, no guarding, no rebound, no hepatosplenomegaly, no masses. EXTREMITIES: 2+ pulses, warm, well-perfused, no edema. NEUROLOGICAL: Cranial nerves II through XII grossly intact. Normal speech, gait not observed. PSYCH: Normal mood, normal affect. SKIN: Warm, dry, normal turgor, no rashes or lesions noted. LABS Laboratory Results - last 24 hr 09/19/19 09/19/19 09/19/19 05:50 17:13 22:12 WBC RBC Hgb Hct MCV MCH MCHC RDW Plt Count MPV Absolute Neuts (auto) Neutrophils % Lymphocytes % Monocytes % Eosinophils % Basophils % Nucleated RBC % Sodium 135 L Potassium 4.0 Chloride 99 Carbon Dioxide 28 Anion Gap 7 L BUN 15.3 Creatinine 0.7 Est GFR (CKD-EPI)AfAm 122.27 Est GFR (CKD-EPI)NonAf 105.50 POC Glucometer 240 243 Random Glucose 173 H Calcium 8.5 Phosphorus 3.1 Magnesium 2.0 Total Bilirubin 1.9 H Direct Bilirubin 0.3 H AST 35 ALT 46 Alkaline Phosphatase 96 Troponin I < 0.02 Total Protein 7.1 Albumin 3.2 L Vitamin B12 Serum Folate 09/20/19 09/20/19 09/20/19 06:32 11:20 11:20 WBC 4.8 RBC 4.42 Hgb 15.2 Hct 45.0 MCV 101.7 H MCH 34.4 H MCHC 33.8 RDW 14.1 Plt Count 107 L MPV 9.5 Absolute Neuts (auto) 3.0 Neutrophils % 62.4 Lymphocytes % 23.8 Monocytes % 9.2 Eosinophils % 4.1 Basophils % 0.5 Nucleated RBC % 0 Sodium 134 L Potassium 4.1 Chloride 100 Carbon Dioxide 27 Anion Gap 8 BUN 19.4 H Creatinine 0.8 Est GFR (CKD-EPI)AfAm 115.74 Est GFR (CKD-EPI)NonAf 99.86 POC Glucometer 154 Random Glucose 147 H Calcium 8.6 Phosphorus Magnesium Total Bilirubin 1.8 H Direct Bilirubin 0.4 H AST 35 ALT 44 Alkaline Phosphatase 92 Troponin I Total Protein 7.4 Albumin 3.4 Vitamin B12 420 Serum Folate 20 H 09/20/19 12:14 WBC RBC Hgb Hct MCV MCH MCHC RDW Plt Count MPV Absolute Neuts (auto) Neutrophils % Lymphocytes % Monocytes % Eosinophils % Basophils % Nucleated RBC % Sodium Potassium Chloride Carbon Dioxide Anion Gap BUN Creatinine Est GFR (CKD-EPI)AfAm Est GFR (CKD-EPI)NonAf POC Glucometer 150 Random Glucose Calcium Phosphorus Magnesium Total Bilirubin Direct Bilirubin AST ALT Alkaline Phosphatase Troponin I Total Protein Albumin Vitamin B12 Serum Folate HOSPITAL COURSE: Date of Admission:09/18/19 Date of Discharge: 09/20/19 54 M with PMH of CAD ([place] x2 in 06/30 and 03/31,) s/p PCI/stent x2, CHF, HTN, HLD , DM2, nephrolithiasis s/p lithotripsy who presented to the Emergency department with left sided chest pain with exertion. Patient had trop I negative x3, with no acute changes on ECG. Patient had no events on telemetry monitoring for 2 days. Patient was continued on home medications of aspirin, plavix, metoprolol, lisinopril, and lipitor. Patient was scheduled for cardiac cath on 09/23, and will follow up at [facility] for that procedure. Shoe Worker saw patient during admission and felt he was safe for discharge with his scheduled follow up appointment. Patient was noted to have a cuticle infection, was started on Augmentin 875 for 7 days BID PO. Imaging was done which did not show any signs of osteomyelitis. Patient had echo completed which showed EF of 55-60% . Imaging done this admission: Echo: The left ventricle is normal in size. Left ventricular systolic function is normal. No regional wall motion abnormalities noted. Ejection Fraction = 55-60%. Grade I diastolic dysfunction, (abnormal relaxation pattern). Ratio E/E'= 15 The right ventricular systolic function is normal. The left atrial size is normal. Right atrial size is normal. There is mild mitral annular calcification. There is mild aortic sclerosis. There is no pericardial effusion. Minutes to complete discharge: 30 Discharge Summary Problems reviewed: Yes Reason For Visit: CHEST PAIN Current Active Problems CAD (coronary artery disease) (Chronic) History of percutaneous coronary intervention (Chronic) Condition: Improved - Instructions Diet, Activity, Other Instructions: You were admitted to the hospital because you had chest pain. We monitored your heart while you were here and it was functioning normally. Your heart enzymes were also normal. We did an echo of your heart, and it was normal. Your anodize machine operator saw you in the hospital, and felt you were stable to go home. You should continue to take your home medications as directed, and follow up with your planned CARDIAC CATHERIZATION on 09/23/19. While you were here we saw that you had an infection of the index finger on your right hand. We took an x-ray of your hand, and it was normal. Please take antibiotics for treatment: Augmentin 875 mg, by mouth, twice a day for the next 7 days. Your last dose will be 09/27/19 at night. Please follow up at [facility] for your cardiac procedure this coming , 09/23/19. Please follow up with Dr. Quinones within 1 week for continue management of your heart conditions. Please follow up with Dr. Oliveros within 1 week to update him on this admission and to continue your health maintenance. If you experience persistent or worsening chest pain, shortness of breath, difficulty breathing or other associated symptoms, please proceed to your nearest emergency room immediately. Referrals: Arben Oliveros [Primary Care Provider] - 1 Week Ran Quinones MD [Staff Physician] - 1 Week Disposition: HOME - Home Medications Comprehensive Discharge Medication List: Ambulatory Orders Aspirin [ASA -] 1 tab PO DAILY 08/27/18 Clopidogrel Bisulfate [Plavix] 75 mg PO DAILY 08/27/18 Lisinopril [Zestril] 2.5 mg PO DAILY 03/25/19 Insulin Glargine,Hum.rec.anlog [Nohemiagljahaira Healy U-100] 10 unit SQ HS 03/26/19 Atorvastatin Ca [Lipitor] 80 mg PO HS tablet 03/28/19 Metoprolol Succinate 25 mg PO DAILY 09/18/19 Amox-Tr/K Cl [Augmentin 875-125mg Tablet -] 1 tab PO BID@0800,1730 #14 tablet Gatifloxacin/Dexamethasone [Gatifloxacin 0.5%-Dexamet 0.1%] 5 ml OS DAILY Sitagliptin Phosphate [Januvia] 100 mg PO DAILY 09/20/19 This patient is new to me today: Yes Date on this admission: 09/20/19 Emergency Visit: Yes ED Registration Date: 09/18/19 Care time: The patient presented to the Emergency Department on the above date and was hospitalized for further evaluation of their emergent condition. Critical Care patient: No - Discharge Referral Referred to [facility] Med P.C.: No ATTENDING PHYSICIAN STATEMENT I saw and evaluated the patient. I reviewed the resident's note and discussed the case with the resident. I agree with the resident's findings and plan as documented. SUBJECTIVE: OBJECTIVE: ASSESSMENT AND PLAN:
[2019-09-20] MEDS ORDERED: AMOX TR/POT CLAV 875MG/125MG TABLETS (FP) PO SCH (20:39)
== END 2019-09-20 18:48 | disposition home or self-care (01) | DRG 303 ==
LOC: JER 14:35 → INTOOBSV 19:04 → JERBED 19:04 → J4W 09-19 18:30
PROVIDERS: ADMIT Internal Medicine; ATTEND Hospitalist
PROC: 3E013VG Introduction of Insulin into Subcutaneous Tissue, Percutaneous Approach (ICD-10-PCS; principal; 2019-09-18)
PROC: 3E013GC Introduction of Other Therapeutic Substance into Subcutaneous Tissue, Percutaneous Approach (ICD-10-PCS; 2019-09-18)
DX: R07.89 Other chest pain (principal); Z68.30 Body mass index [BMI] 30.0-30.9, adult; I25.119 Atherosclerotic heart disease of native coronary artery with unspecified angina pectoris; I11.0 Hypertensive heart disease with heart failure; Z95.5 Presence of coronary angioplasty implant and graft; I25.2 Old myocardial infarction; I50.23 Acute on chronic systolic (congestive) heart failure; E78.5 Hyperlipidemia, unspecified; D75.89 Other specified diseases of blood and blood-forming organs; E11.65 Type 2 diabetes mellitus with hyperglycemia; Z79.4 Long term (current) use of insulin; Z79.02 Long term (current) use of antithrombotics/antiplatelets; E66.3 Overweight; E80.6 Other disorders of bilirubin metabolism; F19.24 Other psychoactive substance dependence with psychoactive substance-induced mood disorder; F41.8 Other specified anxiety disorders; F32.9 Major depressive disorder, single episode, unspecified; F14.20 Cocaine dependence, uncomplicated; M54.42 Lumbago with sciatica, left side
CPT/HCPCS: 36415; 71046-TC-FY; 73130-TC-RT-FY; 80053; 80307; 82248; 82550; 82553; 82607; 82746; 82962; 83735; 84100; 84484; 85025; 85610; 85730; 93005; 93010; 93306-TC; 99285-25; G0378; J1644